=== PATIENT | female | born 1945 | race Caucasian/White ===

== ENCOUNTER → 2017-03-17 | Outpatient (CLI) | payer OTHER ==
[~2017-03-17] MED LIST: AZIT250T PO; CHOL100010 PO; CHOL1TAB76 PO; CHOL20009 PO; CLBPO15 TOP; CLIN300C10 PO; LEVO125T4 PO; LEVO125T7 PO; MULT1CAP53 PO; NUTR-218 PO; PRT/20 PO; TRIA0.5O TOP; [UNRECOGNIZED DRUG - CODE] PO
--- NOTE | 2017-03-17 13:58 | MAMMOGRAPHY REPORT ---
BILATERAL DIGITAL SCREENING MAMMOGRAM WITH CAD: 03/17/2017 CLINICAL HISTORY: Routine screening. Patient has no complaints. TECHNIQUE: Current study was also evaluated with a Computer Aided Detection (CAD) system. Bilateral CC and MLO views were obtained. COMPARISON: Comparison is made to exams dated: 03/16/2016 mammogram, 03/14/2015 mammogram, 03/13/2014 m ammogram, 03/12/2013 mammogram, 03/10/2012 mammogram, and 03/09/2011 mammogram - [facility] enter. BREAST COMPOSITION: The tissue of both breasts is almost entirely fatty. FINDINGS: No suspicious masses, calcifications, or areas of architectural distortion are noted in ei ther breast. There has been no significant interval change compared to prior exams. IMPRESSION: ACR BI-RADS CATEGORY 1: NEGATIVE There is no mammographic evidence of malignancy. A 1 year screening mammogram is recommended. The pa tient will receive written notification of the results. Approximately 10% of breast cancers are not detected with mammography. A negative mammographic report should not delay biopsy if a clinically suggestive mass is present. Rosalia Melgoza M.D. /:03/17/2017 12:28:38 Wrist Closer: Teressa Andrade RT(R)(M), [facility] letter sent: Normal 1/2 BI-RADS Code: ACR BI-RADS Category 1: Negative
== END | disposition home or self-care (01) ==
LOC: C.MAMM 08:15
PROVIDERS: ATTEND Family Medicine
DX: Z12.31 Encounter for screening mammogram for malignant neoplasm of breast (principal)

== ENCOUNTER → 2017-04-12 | Outpatient (CLI) | payer OTHER ==
--- NOTE | 2017-04-12 12:54 | DIAGNOSTIC IMAGING REPORT ---
CHEST 2 VIEWS ROUTINE CLINICAL HISTORY: Shortness of breath. COMPARISON STUDY: Chest radiograph October 06, 2012. FINDINGS: Lung volumes are normal. No pneumothorax or pleural effusion is present. Linear right midlung opacity suggests atelectasis. A lateral projection, there is increased opacity projecting over the lower thoracic spine. Cardiomediastinal silhouette is normal. Mild to moderate elevation of the right hemidiaphragm is unchanged. There are cholecystectomy clips. IMPRESSION: 1. Minimal opacity projecting over the lower thoracic spine on lateral projection. This is likely artifactual although a small area of pneumonia or a pleural effusion could appear similar. 2. Stable mild to moderate elevation of the right hemidiaphragm. Electronically signed by: Maximo Jeffrey M.D. 04/12/2017 12:53 PM Dictated Date/Time: 04/12/2017 12:49 PM
== END | disposition home or self-care (01) ==
LOC: C.RAD1850 11:00
PROVIDERS: ATTEND Physician Assistant
DX: R06.02 Shortness of breath (principal); R91.8 Other nonspecific abnormal finding of lung field

== ENCOUNTER 2017-04-21 12:36 | Emergency (ER) | payer OTHER ==
[~2017-04-21] VITALS: Ht 160 cm; Wt 92.0 kg
[~2017-04-21 12:36] MED LIST changes: -AZIT250T PO; -CHOL100010 PO; -CHOL20009 PO; -CLBPO15 TOP; -CLIN300C10 PO; -LEVO125T4 PO; -MULT1CAP53 PO; -NUTR-218 PO; -PRT/20 PO; -TRIA0.5O TOP; -[UNRECOGNIZED DRUG - CODE] PO
[2017-04-21 12:45] VITALS: TEMP 36.5; Ht 160 cm; Wt 92.0 kg
--- NOTE | 2017-04-21 13:11 | EMERGENCY ROOM VISIT NOTE ---
History Report prepared by Tucker: Alvarado Gao Under the Supervision of: Dr. Zoya Flood D.O. First contact with patient: 12:55 Chief Complaint: RESPIRATORY PROBLEMS Stated Complaint: BREATHING, NO PAIN History of Present Illness The patient is a 72 year old female who presents to the Emergency Room with complaints of persistent respiratory problems that started around 3 months ago. 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 The patient states that she has been having a hard time breathing and feels like she can't get a deep breath, and she has been having mouth burning as well. The patient notes that she has been seeing numerous doctors to try to figure out what is going on. She has been given Dexamethasone, which she says helped with her burning, but her breathing difficulties have persisted. The patient notes that she was given Azithromycin as well, and took her last dose of her 5-day course 5 days ago. She adds that she has been having an intermittent dry cough, but denies any fevers, runny nose , ear pain, chest pain, or leg swelling. The patient states that she called her pulmonology office and was told to come here. She notes no recent medication changes or sick contacts. She says that she did travel to [place] 4 months ago. The patient notes no history of lung problems or heart problems. She notes no family history of breathing issues, and she says that she has not had any major second-hand smoke exposure. She has never smoked, and she has no asthma history. The patient notes that she had a chest x-ray last week. Source of History: patient Onset: Around 3 months ago Position: other (global - respiratory problems) Quality: other (hard to get a deep breath) Timing: other (persistent) Associated Symptoms: + cough (dry), No fevers, No chest pain Note: Associated symptoms: Mouth burning which has resolved. Denies ear pain, runny nose, leg swelling. Review of Systems See HPI for pertinent positives & negatives. A total of 10 systems reviewed and were otherwise negative. Past Medical & Surgical Medical Problems: (1) Anxiety (2) Dyslipidemia (3) Gastroesophageal reflux disease (4) Hypothyroidism Family History Patient reports no known family medical history. Social History Smoking Status: Never Smoker Marital Status: Housing Status: lives with family Occupation Status: retired Current/Historical Medications Scheduled Azithromycin (Zithromax), 250 MG PO DAILY Cholecalciferol (Vitamin D), 1,000 UNITS PO DAILY Cholecalciferol (Vitamin D), 2,000 UNITS PO DAILY Clindamycin Hcl (Clindamycin Hcl), 600 MG PO UD Clobetasol Propionate (Clobetasol Propionate), 1 APPLN TOP BID Levothyroxine Sodium (Levothyroxine Sodium), 125 MCG PO DAILY Multiple Vitamins W/ Minerals (Macular Health Formula), 1 CAP PO DAILY Nutritional Supplements (Juice Plus Fibre), 1 DOSE PO DAILY Ackworth-3 Fatty Acids (Ackworth-3 Plus), 1 CAP PO DAILY Scheduled PRN Pantoprazole (Protonix), 20 MG PO DAILY PRN for GERD Triamcinolone Acetonide (Topic (Triamcinolone Acetonide), 1 APPLN TOP UD PRN for UNDECIDED Allergies Coded Allergies: Hydrocodone (Verified Allergy, Intermediate, HIVES, 04/21/17) Aspirin (Verified Allergy, Mild, HIVES, 04/21/17) Bupropion (Verified Allergy, Unknown, HIVES, 04/21/17) Codeine (Verified Allergy, Unknown, TYL #3, 07/09/16) Diphenhydramine (Verified Allergy, Unknown, 07/09/16) NSAIDs (Verified Allergy, Unknown, `, 04/21/17) Penicillins (Verified Allergy, Unknown, 07/09/16) Physical Exam Vital Signs Date Time Temp Pulse Resp B/P (MAP) Pulse Ox O2 Delivery O2 Flow Rate FiO2 04/21/17 18:22 73 20 167/90 92 Room Air 04/21/17 17:08 76 18 162/107 91 Room Air 04/21/17 16:24 71 04/21/17 14:37 91 Room Air 04/21/17 14:37 74 16 165/92 91 Room Air 04/21/17 13:02 94 Room Air 04/21/17 13:00 86 04/21/17 12:45 36.5 84 24 164/102 94 Room Air Physical Exam GENERAL: alert, well appearing, well nourished, no distress, non-toxic EYE EXAM: normal conjunctiva, PERRL and EOM's grossly intact OROPHARYNX: no exudate, no erythema, lips, buccal mucosa, and tongue normal and mucous membranes are dry NECK: supple, no nuchal rigidity, no adenopathy, non-tender LUNGS: Clear to auscultation. Normal chest wall mechanics HEART: no murmurs, S1 normal and S2 normal ABDOMEN: abdomen soft, non-tender, normo-active bowel sounds, no masses, no rebound or guarding. BACK: Back is symmetrical on inspection and there is no deformity, no midline tenderness, no CVA tenderness. SKIN: no rashes and no bruising UPPER EXTREMITIES: upper extremities are grossly normal. LOWER EXTREMITIES: No pitting edema. NEURO EXAM: Normal sensorium, cranial nerves II-XII grossly intact, normal speech, no gross weakness of arms, no gross weakness of legs. No drift. Finger to nose intact. Gross sensation intact. Medical Decision & Procedures ER Provider Diagnostic Interpretation: CT:Per my review, radiologist interpretation. (CHEST FOR PE) ANGIO WITH CT DOSE: 437.07 mGycm HISTORY: Chest pain dyspnea TECHNIQUE: Multiaxial CT images of the chest were performed following the intravenous administration of contrast to evaluate the pulmonary arteries. Maximal intensity projection images were also obtained. A dose lowering technique was utilized adhering to the principles of ALARA. COMPARISON STUDY: None. FINDINGS: There is a normal caliber thoracic aorta with no evidence for dissection. There is no evidence for pulmonary embolus. No pleural effusions. No pneumothorax. The liver and spleen are unremarkable. No mediastinal or hilar lymphadenopathy. The central airways are patent. The lungs demonstrate slight interstitial prominence in the mid to lower lung regions bilaterally. IMPRESSION: No evidence for pulmonary embolus. Mild interstitial change of the mid to lower lung regions The above report was generated using voice recognition software. It may contain grammatical, syntax or spelling errors. Electronically signed by: Obinna Arreola M.D. 04/21/2017 3:38 PM Dictated Date/Time: 04/21/2017 3:36 PM Laboratory Results 04/21/17 13:30 Red Blood Count 4.71, Mean Corpuscular Volume 89.6, Mean Corpuscular Hemoglobin 31.0, Mean Corpuscular Hemoglobin Concent 34.6, Mean Platelet Volume 8.9, Neutrophils (%) (Auto) 52.3, Lymphocytes (%) (Auto) 39.6, Monocytes (%) (Auto) 6.9, Eosinophils (%) (Auto) 0.7, Basophils (%) (Auto) 0.4, Neutrophils # (Auto) 3.76, Lymphocytes # (Auto) 2.85, Monocytes # (Auto) 0.50, Eosinophils # (Auto) 0.05, Basophils # (Auto) 0.03 04/21/17 13:30 Test 04/21/17 13:30 White Blood Count 7.20 K/uL (4.8-10.8) Red Blood Count 4.71 M/uL (4.2-5.4) Hemoglobin 14.6 g/dL (12.0-16.0) Hematocrit 42.2 % (37-47) Mean Corpuscular Volume 89.6 fL (80-100) Mean Corpuscular Hemoglobin 31.0 pg (25-34) Mean Corpuscular Hemoglobin Concent 34.6 g/dl (32-36) Platelet Count 312 K/uL (130-400) Mean Platelet Volume 8.9 fL (7.4-10.4) Neutrophils (%) (Auto) 52.3 % Lymphocytes (%) (Auto) 39.6 % Monocytes (%) (Auto) 6.9 % Eosinophils (%) (Auto) 0.7 % Basophils (%) (Auto) 0.4 % Neutrophils # (Auto) 3.76 K/uL (1.4-6.5) Lymphocytes # (Auto) 2.85 K/uL (1.2-3.4) Monocytes # (Auto) 0.50 K/uL (0.11-0.59) Eosinophils # (Auto) 0.05 K/uL (0-0.5) Basophils # (Auto) 0.03 K/uL (0-0.2) RDW Standard Deviation 46.5 fL (36.4-46.3) RDW Coefficient of Variation 14.0 % (11.5-14.5) Immature Granulocyte % (Auto) 0.1 % Immature Granulocyte # (Auto) 0.01 K/uL (0.00-0.02) Prothrombin Time 10.5 SECONDS (9.0-12.0) Prothromb Time International Ratio 1.0 (0.9-1.1) Anion Gap 9.0 mmol/L (3-11) Est Creatinine Clear Calc Drug Dose 69.0 ml/min Estimated GFR () 88.2 Estimated GFR (Non- 76.1 BUN/Creatinine Ratio 12.1 (10-20) Calcium Level 8.9 mg/dl (8.5-10.1) Magnesium Level 2.5 mg/dl (1.8-2.4) Total Bilirubin 0.4 mg/dl (0.2-1) Aspartate Amino Transf (AST/SGOT) 13 U/L (15-37) Alanine Aminotransferase (ALT/SGPT) 20 U/L (12-78) Alkaline Phosphatase 121 U/L (45-117) Troponin I < 0.015 ng/ml (0-0.045) Pro-B-Type Natriuretic Peptide 57 pg/ml (0-900) Total Protein 7.9 gm/dl (6.4-8.2) Albumin 3.7 gm/dl (3.4-5.0) Globulin 4.2 gm/dl (2.5-4.0) Albumin/Globulin Ratio 0.9 (0.9-2) Thyroid Stimulating Hormone (TSH) 4.620 uIu/ml (0.300-4.500) Laboratory results per my review. Medications Administered Medications (Trade) Dose Ordered Sig/Rex Route Start Time Stop Time Status Last Admin Dose Admin Albuterol (Ventolin Hfa Inhaler) 2 puffs NOW ONCE INH 04/21/17 18:00 04/21/17 18:01 DC 04/21/17 18:20 2 PUFFS ECG Indication: SOB/dyspnea Rate (beats per minute): 67 Rhythm: normal sinus Findings: T-wave inversion (in lead 3 and V3), other (normal axis, normal intervals, low voltage, no electrical alternans) ED Course ED COURSE: The patients medical record was reviewed The above diagnostic studies were performed and reviewed. ED treatments and interventions as stated above. 1300: The patient was evaluated in room B4B. A complete history and physical examination was performed. 1736: Upon reevaluation, the patient is resting comfortably.I discussed my findings with the patient and she understands and agrees with the treatment plan. Based on the patients age, coexisting illnesses, exam and lab findings the decision to treat as an outpatient was made. The patient remained stable while under my care. The patient appeared well at the time of discharge. 1800: Ordered Ventolin Hfa Inhaler 2 puffs INH. Medical Decision Differential diagnoses includes but is not limited to pneumonia, bronchitis, COPD/Asthma exacerbation, pneumothorax, pulmonary embolism, congestive heart failure, acute coronary syndrome Patient well-appearing here despite complaints. Complaints of trouble breathing and not always exertional, although patient states more noticeable with exertion. Symptoms have been going on for several months. Patient with negative CAT scan, reassuring labs, no hypoxia or increased work of breathing while ambulating here and patient states she did not feel out of breath with ambulatory trial. Discussed with patient close follow-up with family doctor. Patient states she did already have evaluation by cardiology felt that her symptoms are not related to her heart, she is scheduled for PFTs in 2 weeks by pulmonology. Discussed with patient symptoms to watch and return for, possible differential diagnosis, she was given an MDI and spacer which she felt was helpful, she verbalized understanding all this was agreeable with plan. Doubt ACS, dissection, PE, effusion, congestive heart failure, infiltrate. Patient with no history of asthma or COPD. Possible component of anxiety. Medication Reconcilliation Current Medication List: was personally reviewed by me Blood Pressure Screening Patient's blood pressure: Elevated blood pressure Blood pressure disposition: Elevated BP felt to be situational Impression Primary Impression: Dyspnea Scribe Attestation The scribe's documentation has been prepared under my direction and personally reviewed by me in its entirety. I confirm that the note above accurately reflects all work, treatment, procedures, and medical decision making performed by me. Departure Information Dispostion Home / Self-Care Referrals Rachele Vidal M.D. (PCP) Patient Instructions My [facility] Additional Instructions Please keep your appointment for the pulmonary function tests in 2 weeks as scheduled. Please follow up with your family doctor. You may use the inhaler and spacer as provided up to every 4 hours as needed. If you have any worsening trouble breathing, becomes more persistent, you develop chest pain, dizziness, feels though you're going to black out or pass out, develop a fever, or you have any other new concerns, please return the emergency room. Problem Qualifiers Primary Impression: Dyspnea Dyspnea type: dyspnea on exertion Qualified Codes: R06.09 - Other forms of dyspnea
[2017-04-21] MEDS ORDERED: [UNRECOGNIZED DRUG - CODE] PO (13:29)
[2017-04-21] MEDS ORDERED: TRIA0.5O TOP (13:29)
[2017-04-21] MEDS ORDERED: LEVO125T4 PO (13:29)
[2017-04-21] MEDS ORDERED: CLIN300C10 PO (13:29)
[2017-04-21] MEDS ORDERED: AZIT250T PO (13:29)
[2017-04-21] MEDS ORDERED: NUTR-218 PO (13:29)
[2017-04-21] MEDS ORDERED: PRT/20 PO (13:29)
[2017-04-21] MEDS ORDERED: MULT1CAP53 PO (13:29)
[2017-04-21] MEDS ORDERED: CHOL100010 PO (13:29)
[2017-04-21] MEDS ORDERED: CLBPO15 TOP (13:29)
[2017-04-21] MEDS ORDERED: CHOL20009 PO (13:29)
[2017-04-21 13:45] LABS: BASO % 0.4 %; BASO ABS # 0.03 K/uL (0-0.2); COMPLETE YES; EOS % 0.7 %; HEMATOCRIT 42.2 % (37-47); IG% 0.1 %; LYMPH % 39.6 %; LYMPH ABS # 2.85 K/uL (1.2-3.4); MEAN CELL VOLUME 89.6 fL (80-100); MEAN CORPUSCULAR HGB CONC 34.6 g/dl (32-36); MEAN PLATELET VOLUME 8.9 fL (7.4-10.4); MONO % 6.9 %; NEUT % 52.3 %; PLATELET COUNT 312 K/uL (130-400); RED BLOOD COUNT 4.71 M/uL (4.2-5.4)
[2017-04-21 13:55] LABS: PROTHROMBIN TIME (PATIENT) 10.5 SECONDS (9.0-12.0)
[2017-04-21 14:04] LABS: ALT/SGPT 20 U/L (12-78); AST/SGOT 13 U/L (15-37); BLOOD UREA NITROGEN 9 mg/dl (7-18); BUN/CREATININE RATIO 12.1 (10-20); CALCIUM 8.9 mg/dl (8.5-10.1); CARBON DIOXIDE 26 mmol/L (21-32); CHLORIDE 103 mmol/L (98-107); CREATININE 0.77 mg/dl (0.60-1.20); GLUCOSE 87 mg/dl (70-99); MAGNESIUM 2.5 mg/dl (1.8-2.4); POTASSIUM 3.9 mmol/L (3.5-5.1); SODIUM 138 mmol/L (136-145)
[2017-04-21 14:15] LABS: ALB/GLOB RATIO 0.9 (0.9-2); ALKALINE PHOSPHATASE 121 U/L (45-117)
[2017-04-21] MEDS ORDERED: OPTIRAY 320 IV PRN (14:30)
--- NOTE | 2017-04-21 15:40 | DIAGNOSTIC IMAGING REPORT ---
(CHEST FOR PE) ANGIO WITH CT DOSE: 437.07 mGycm HISTORY: Chest pain dyspnea TECHNIQUE: Multiaxial CT images of the chest were performed following the intravenous administration of contrast to evaluate the pulmonary arteries. Maximal intensity projection images were also obtained. A dose lowering technique was utilized adhering to the principles of ALARA. COMPARISON STUDY: None. FINDINGS: There is a normal caliber thoracic aorta with no evidence for dissection. There is no evidence for pulmonary embolus. No pleural effusions. No pneumothorax. The liver and spleen are unremarkable. No mediastinal or hilar lymphadenopathy. The central airways are patent. The lungs demonstrate slight interstitial prominence in the mid to lower lung regions bilaterally. IMPRESSION: No evidence for pulmonary embolus. Mild interstitial change of the mid to lower lung regions The above report was generated using voice recognition software. It may contain grammatical, syntax or spelling errors. Electronically signed by: Obinna Arreola M.D. 04/21/2017 3:38 PM Dictated Date/Time: 04/21/2017 3:36 PM
[2017-04-21] MEDS ORDERED: ALBUTEROL HFA 8 GM INHALER INH ONE (18:00)
[2017-04-21 18:22] VITALS: BP 167/90; PULSE 73; O2SAT 92
== END 2017-04-21 19:02 | disposition home or self-care (01) ==
LOC: C.EDB 12:39
DX: R06.09 Other forms of dyspnea (principal); R05 Cough; E03.9 Hypothyroidism, unspecified; E78.5 Hyperlipidemia, unspecified; F41.9 Anxiety disorder, unspecified; K21.9 Gastro-esophageal reflux disease without esophagitis; Z79.899 Other long term (current) drug therapy

== ENCOUNTER → 2018-03-20 | Outpatient (CLI) | payer OTHER ==
[~2018-03-20] MED LIST changes: +AZIT250T PO; +CHOL100010 PO; -CHOL1TAB76 PO; +CHOL20009 PO; +CLBPO15 TOP; +CLIN300C10 PO; +LEVO125T5 PO; -LEVO125T7 PO; +MULT1CAP53 PO; +NUTR-218 PO; +PRT/20 PO; +TRIA0.5O TOP; +[UNRECOGNIZED DRUG - CODE] PO
--- NOTE | 2018-03-20 13:56 | MAMMOGRAPHY REPORT ---
BILATERAL DIGITAL SCREENING MAMMOGRAM TOMOSYNTHESIS WITH CAD: 03/20/2018 CLINICAL HISTORY: Routine screening. Patient has no complaints. TECHNIQUE: Breast tomosynthesis in addition to standard 2D mammography was performed. Current study w as also evaluated with a Computer Aided Detection (CAD) system. COMPARISON: Comparison is made to exams dated: 03/17/2017 mammogram, 03/16/2016 mammogram, 03/14/2015 m ammogram, 03/13/2014 mammogram, 03/15/2012 ultrasound, and 03/10/2012 mammogram - [facility]. BREAST COMPOSITION: The tissue of both breasts is almost entirely fatty. FINDINGS: No suspicious masses, calcifications, or areas of architectural distortion are noted in either breast . There has been no significant interval change compared to prior exams. IMPRESSION: ACR BI-RADS CATEGORY 1: NEGATIVE There is no mammographic evidence of malignancy. A 1 year screening mammogram is recommended.( 019) The patient will receive written notification of the results. Some breast cancers are not detected with mammography. A negative mammographic report should not lety y biopsy if a clinically suggestive mass is present. oRsalia Melgoza M.D. /:03/20/2018 09:32:23 Turbo Generator Oiler: Edna Solis [facility] letter sent: Normal 1/2 BI-RADS Code: ACR BI-RADS Category 1: Negative
== END | disposition home or self-care (01) ==
LOC: C.MAMM 08:33
PROVIDERS: ATTEND Family Medicine
DX: Z12.31 Encounter for screening mammogram for malignant neoplasm of breast (principal); M85.851 Other specified disorders of bone density and structure, right thigh

== ENCOUNTER 2023-10-22 08:19 | Observation (INO) ==
--- NOTE | 2023-10-22 08:55 | Emergency Department Note ---
Impression & Plan Right arm weakness, Stroke-like symptoms, History of CVA (cerebrovascular accident), Hypertension ED Provider Note NAME: LAKEISHA MEDEROS AGE: 78 SEX: F : 1945 ARRIVES VIA: Walk-In INFORMANT: [Patient][family] ED PROVIDER(S): [Dominick Uribe MD] CHIEF COMPLAINT: TIA symptoms HISTORY OF PRESENT ILLNESS: The patient is an 78-year-old female who states that yesterday, around 3:30 in the PM, she had the sudden sensation of difficulty with movement of her right arm, her right face was droopy and somewhat numb and her speech was slurred. Her symptoms lasted 30 seconds. Patient was fine the rest of the day. This morning, at around 6:30 AM, 2 hours and 15 minutes ago, she noticed difficulty with movement of her right arm. There was no face or speech issue this time around. Her symptoms did last for an hour and a half before resolving. She feels back to baseline now. The patient states that a month ago, she had her cholesterol medications increased. 3 days ago, she had a blood pressure medication change because she was coughing too much with the original medication. There is no headache, she has not had chest pain or shortness of breath. No cough or cold or congestion. No urinary complaints. She states that despite everything over the last few days, she never noticed issues with her legs. Of note, the patient is allergic to aspirin. She has had a stroke previously, she is on Plavix daily. PMHx/PSHx/Social Hx: See Below PHYSICAL EXAM: GENERAL: Patient is in no acute distress. HEENT: No acute trauma, normocephalic atraumatic, mucous membranes moist, no nasal congestion. NECK: No stridor, no adenopathy, no meningismus, trachea is midline. LUNGS: Clear to auscultation bilaterally, no wheeze, no rhonchi, breath sounds equal. HEART: Without murmurs gallops or rubs, regular rate and rhythm. ABDOMEN: Soft, nontender, no peritonitis. EXTREMITIES: No cyanosis, full range of motion of all the joints without pain or difficulty. NEUROLOGIC: Oriented x 3, no acute motor or sensory deficits, no focal weakness. No speech slur or facial droop, no extremity drift, no issues with cerebellar function, excellent historian. SKIN: No jaundice, no diaphoresis. DIFFERENTIAL DIAGNOSIS: TIA, stroke, UTI, electrolyte imbalance, dysrhythmia, intracranial bleeding, among others. EMERGENCY DEPARTMENT PROCEDURES: MEDICAL DECISION MAKING: There is no leukocytosis or concerning anemia. There is a normal platelet count. No coagulopathy. Sodium slightly low but not in need of emergent correction. No renal failure. Alk phos slightly elevated, the remaining liver enzymes were unremarkable. ECG shows a normal sinus rhythm, no ischemia or dysrhythmia. Cardiac enzymes x 1 is not consistent with acute cardiac injury. Urinalysis does not show infection. Brain CT shows no acute bleed or mass effect. CT angio of the head and neck were performed. There was no clot or severe stenosis. On my exam, there were no focal neurologic findings. The patient's symptoms had resolved. She was noted to be somewhat hypertensive. Patient was given oral Plavix, 75 mg. She received a 500 cc saline bolus. Patient presents with stroke symptoms. She very likely suffered a TIA yesterday and then again today. She has a history of CVA and is on Plavix. She did have her blood pressure medications recently switched. Her pressure is slightly high and at this point just needs to be followed. Patient requires a hospital stay for further stroke workup. I did speak with the patient and case management, the on-call hospitalist was consulted. Prior/Outside records/notes reviewed: Discharge summary note from 10/01/2020 discussing her presentation and the diagnosis of stroke. ECG per my interpretation: Indication was a possible stroke. The ECG shows a normal sinus rhythm with a rate of 83. There is no acute ST elevation. There are no PVCs. There is some nonspecific ST change. The QTc is 460. Continuous Cardiac Monitoring per my interpretation: An order was placed for continuous cardiac monitoring. The monitor shows a rate of 86 with normal sinus rhythm. Imaging/x-ray results per my interpretation: Chronic Medical/Social conditions affecting care: Advanced age. Care/Management discussed with: Case management, the on-call hospitalist. 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 History of sleep apnea O2 SAT CHRONICALLY RUNS AT 92% PER PT Surgical History History of cataract surgery History of cholecystectomy History of colonoscopy History of hysterectomy History of open reduction and internal fixation (ORIF) procedure History of oral surgery History of total left knee replacement Family History Other Asthma Hearing loss Heart disease Hypertension No family history of bleeding disorder Stroke Denies family history of Cancer Social History Smoking Status: Never smoker Do You Dip or Chew Tobacco: No; Hx Alcohol Use: No Hx Substance Use: No Preferred Language: Bengali Communication Ability: Effective Art Class Model Required: No Beliefs That Will Affect Care: None marital status: / Current Living Situation: Alone current occupational status: retired How many Children do You have: 4 Other Information That Helps Us Care for You: No Feels Safe at Home: Yes Safety Concerns: Feels Safe At This Time Assistive Devices: Denture - Upper, Denture - Lower, Glasses and Hearing Aid - Bilateral Allergies Allergies Allergy/AdvReac Type Severity Reaction Status Date / Time aspirin Allergy Intermediate HIVES Verified 07/30/21 08:58 bupropion Allergy Intermediate HIVES Verified 07/30/21 08:58 codeine Allergy Intermediate TYL Verified 07/30/21 08:58 #3/HIVES hydrocodone Allergy Intermediate HIVES Verified 07/30/21 08:58 NSAIDS (Non-Steroidal Allergy Intermediate Hives Verified 07/30/21 08:58 Anti-Inflamma Penicillins Allergy Intermediate Hives Verified 07/30/21 08:58 Home Meds Home Medications Medication Instructions Recorded Confirmed ascorbic acid (vitamin C) 1,000 mg 1 g PO QAM 02/12/20 10/22/23 tablet (Vitamin C) cholecalciferol (vitamin D3) 50 50 mcg PO QAM 02/12/20 10/22/23 mcg (2,000 unit) capsule (Vitamin D3) coenzyme Q10 100 mg capsule 200 mg PO DAILY 10/17/20 10/22/23 (CoQ-10) pantoprazole 20 mg tablet,delayed 20 mg PO QPM 10/17/20 10/22/23 release levothyroxine 137 mcg tablet 137 mcg PO DAILY 07/30/21 10/22/23 nutritional supplement-fiber oral 2 ea PO DAILY 07/30/21 10/22/23 liquid nutritional supplement-fiber oral 2 ea PO DAILY 07/30/21 10/22/23 liquid omega-3 fatty acids [[place] 3] 4 cap PO DAILY 07/30/21 10/22/23 zinc gluconate-vitamin C [zinc] 50 mg PO DAILY 07/30/21 10/22/23 hydrochlorothiazide 12.5 mg capsule 12.5 mg PO DAILY 10/22/23 10/22/23 pravastatin 40 mg tablet 40 mg PO DAILY 10/22/23 10/22/23 Previous Rx's Medication Instructions Recorded clopidogrel 75 mg tablet 75 mg PO QAM #30 tabs 10/01/20 Results & Data (ED) Vital Signs Vital Signs - 24 hr 10/22/23 08:28 10/22/23 08:51 10/22/23 09:04 Temperature 36.3 C L Temperature Source Temporal Artery Scan Pulse Rate 93 H 84 Pulse Rate [Apical] 86 Respiratory Rate 18 18 Respiratory Effort / Characteristics Non-Labored Non-Labored Respiratory Depth Normal Normal Respiratory Pattern Regular Regular Blood Pressure 163/76 H Blood Pressure [Left Arm] 161/94 H Blood Pressure Mean 105 Blood Pressure Mean [Left Arm] 116 Pulse Oximetry 95 94 Oxygen Delivery Method Room Air Room Air Sepsis Recent Fever Within 48 Hours No Sepsis New/Unexplained Change in Mental Status N/A Sepsis Action Taken by Nursing No Action Required 10/22/23 09:50 Temperature Temperature Source Pulse Rate Pulse Rate [Apical] 76 Respiratory Rate 18 Respiratory Effort / Characteristics Non-Labored Respiratory Depth Normal Respiratory Pattern Regular Blood Pressure Blood Pressure [Left Arm] 184/98 H Blood Pressure Mean Blood Pressure Mean [Left Arm] 126 Pulse Oximetry 98 Oxygen Delivery Method Room Air Sepsis Recent Fever Within 48 Hours Sepsis New/Unexplained Change in Mental Status Sepsis Action Taken by Prison Medications Current Medication List: was personally reviewed by me Laboratory Data Attestation: I reviewed the patient's lab results. 10/22/23 08:42 10/22/23 08:42 Lab Results 10/22/23 10/22/23 10/22/23 Range/Units 08:42 08:44 09:44 WBC 7.09 (4.8-10.8) K/ul RBC 4.92 (4.20-5.40) M/uL Hgb 14.6 (12.0-16.0) g/dl Hct 44.0 (37.0-47.0) % MCV 89.4 (80.0-100.0) fL MCH 29.7 (25.0-34.0) pg MCHC 33.2 (32.0-36.0) g/dL RDW Std Deviation 42.5 (36.4-46.3) fL RDW Coeff of [place] 12.9 (11.5-14.5) % Plt Count 344 (130-400) K/uL MPV 8.9 L (9.4-12.4) fL Immature Gran % (Auto) 0.3 % Neut % (Auto) 57.0 % Lymph % (Auto) 34.7 % [place] % (Auto) 7.2 % Eos % (Auto) 0.4 % Baso % (Auto) 0.4 % Neut # (Auto) 4.04 (1.40-6.50) K/uL Lymph # (Auto) 2.46 (1.20-3.40) K/uL [place] # (Auto) 0.51 (0.11-0.59) K/uL Eos # (Auto) 0.03 (0.00-0.50) K/uL Baso # (Auto) 0.03 (0.00-0.20) K/uL Immature Gran # (Auto) 0.02 (0.01-0.20) K/uL PT 10.6 (9.0-12.0) Seconds INR 1.0 (0.9-1.1) APTT 29 (21-31) Seconds PTT Ratio 1.0 Sodium 131 L (136-145) mmol/L Potassium 3.7 (3.5-5.1) mmol/L Chloride 95 L (98-107) mmol/L Carbon Dioxide 28 (21-32) mmol/L Anion Gap 8 (3-11) BUN 10 (6-23) mg/dl Creatinine 0.80 (0.6-1.2) mg/dl Est Cr Clr Drug Dosing 59.5 ml/min Est GFR ( Amer) 80.7 ml/min Est GFR (Non-Af Amer) 69.6 ml/min BUN/Creatinine Ratio 12.5 (10-20) Glucose 117 H (70-99(Fasting)) mg/dl POC Glucose 118 H (70-99) mg/dl Calcium 9.5 (8.6-10.3) mg/dl Magnesium 2.2 (1.7-2.4) mg/dl Total Bilirubin 0.5 (0.2-1.0) mg/dl AST 17 (13-39) U/L ALT 14 (7-52) U/L Alkaline Phosphatase 106 H (34-104) U/L Troponin I High Sens 2.5 (0-14) pg/ml Total Protein 7.7 (6.0-8.3) gm/dl Albumin 4.2 (3.4-5.0) gm/dl Globulin 3.5 (2.5-4.0) gm/dl Albumin/Globulin Ratio 1.2 (0.9-2) Urine Color Yellow Urine Appearance Clear (Clear) Urine pH 7.5 (4.5-7.5) Ur Specific [place] 1.013 (1.000-1.030) Urine Protein Negative (Negative) Urine Glucose (UA) Negative (Negative) Urine Ketones Negative (Negative) Urine Blood Negative (Negative) Urine Nitrite Negative (Negative) Urine Bilirubin Negative (Negative) Urine Urobilinogen Negative (Negative) Ur Leukocyte Esterase Trace H (Negative) Urine WBC (Auto) 1-5 (0-5) /hpf Urine RBC (Auto) 0-4 (0-4) /hpf U Hyaline Cast (Auto) 0 (0-5) /lpf U Epithel Cells (Auto) 10-20 H (0-5) /lpf Urine Bacteria (Auto) Negative (Negative) Administered Medications Discontinued Medications Clopidogrel Bisulfate (Clopidogrel Bisulfate 75 Mg Tab) 75 mg PO NOW ONE Stop: 10/22/23 08:50 Last Admin: 10/22/23 09:00 Dose: 75 mg Documented By: DAREN Sodium Chloride (Nss) 500 mls @ 999 mls/hr IV .Q31M ONE Stop: 10/22/23 09:19 Last Infusion: 10/22/23 09:40 Dose: Infused Documented By: Admin: 10/22/23 09:00 Dose: 999 mls/hr Documented By: DAREN Ioversol (Optiray 320 125ml) 112 ml IV ONCE ONE Stop: 03/30/24 09:27 Last Admin: 10/22/23 09:27 Dose: 112 ml Documented By: AMARILYS Lorazepam (Lorazepam 1 Mg/1 Ml Syr Ed Inj Use) 0.5 mg IV ONE ONE Stop: 10/22/23 12:16 Last Admin: 10/22/23 12:55 Dose: 0.5 mg Documented By: DAREN Imaging Data Radiologist's Impression: Head CT 10/22/23 08:[address] DOSE: HISTORY: neuro deficit, acute stroke suspected TECHNIQUE: Multiaxial CT images of the head were performed without the use of intravenous contrast. Automated exposure control was utilized for this study. A dose lowering technique was utilized adhering to the principles of ALARA. Comparison: Head CT 10/17/2020. Findings: The paranasal sinuses and mastoid air cells are clear. The calvarium and skull base are intact. There is no mass, hematoma, midline shift, acute infarct. White matter hypodensity is nonspecific but suggestive of microvascular ischemic change. The ventricles and sulci demonstrate mild age-related involutional changes. Impression: No significant change compared to the prior study. No acute intracranial abnormality. ACT 112: Negative or not required by law. Electronically signed by: Jamaal Marcano M.D. 10/22/2023 9:54 AM Head CTA 10/22/23 08:50 HEAD & NECK CTA HISTORY: neuro deficit, acute stroke suspected TECHNIQUE: Multiaxial CT images of the head were performed following the intravenous administration of contrast to evaluate the major cerebral vessels. Multiaxial CT images of the neck were also performed following the intravenous administration of contrast to evaluate the major cervical vessels. 3D/MIP images were also obtained. Sagittal and coronal reformats were reviewed. A dose lowering technique was utilized adhering to the principles of ALARA. COMPARISON: Head and neck CTA 09/28/2020. FINDINGS: There is no mass, hematoma, midline shift, or acute infarct. Visualized intracranial internal carotid arteries, distal vertebral arteries, and basilar artery are widely patent. 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 Mild focal narrowing within the right P1 segment of less than 50% has slightly improved. The major dural venous sinuses are patent. The aortic arch and proximal great vessels are widely patent. There is no significant stenosis, occlusion, or dissection identified within the bilateral common carotid, internal carotid, or vertebral arteries. Mild calcified plaque within the bilateral carotid bifurcations. IMPRESSION: 1. No significant stenosis, occlusion, or aneurysm within the [place]. 2. No significant stenosis, occlusion, or dissection identified within the carotid or vertebral arteries. 3. Mild focal narrowing within the right P1 segment of less than 50% has slightly improved. ACT 112: Negative or not required by law. Electronically signed by: Jamaal Marcano M.D. 10/22/2023 9:59 AM Neck CTA 10/22/23 08:50 HEAD & NECK CTA HISTORY: neuro deficit, acute stroke suspected TECHNIQUE: Multiaxial CT images of the head were performed following the intravenous administration of contrast to evaluate the major cerebral vessels. Multiaxial CT images of the neck were also performed following the intravenous administration of contrast to evaluate the major cervical vessels. 3D/MIP images were also obtained. Sagittal and coronal reformats were reviewed. A dose lowering technique was utilized adhering to the principles of ALARA. COMPARISON: Head and neck CTA 09/28/2020. FINDINGS: There is no mass, hematoma, midline shift, or acute infarct. Visualized intracranial internal carotid arteries, distal vertebral arteries, and basilar artery are widely patent. 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 Mild focal narrowing within the right P1 segment of less than 50% has slightly improved. The major dural venous sinuses are patent. The aortic arch and proximal great vessels are widely patent. There is no significant stenosis, occlusion, or dissection identified within the bilateral common carotid, internal carotid, or vertebral arteries. Mild calcified plaque within the bilateral carotid bifurcations. IMPRESSION: 1. No significant stenosis, occlusion, or aneurysm within the [place]. 2. No significant stenosis, occlusion, or dissection identified within the carotid or vertebral arteries. 3. Mild focal narrowing within the right P1 segment of less than 50% has slightly improved. ACT 112: Negative or not required by law. Electronically signed by: Jamaal Marcano M.D. 10/22/2023 9:59 AM Discharge Plan Visit Data Chief Complaint: TIA Symptoms Stated Complaint: RIGHT ARM PAIN/NUMBNESS, FACIAL DROOP YESTERDAY ED Provider: Dominick Uribe Discharge Problem: Right arm weakness, Stroke-like symptoms, History of CVA (cerebrovascular accident), Hypertension Patient Disposition: Admitted As Inpatient Condition: Good Discharge Instructions Interventions: ED Discharge Assessment Last Done: 10/22/23 13:00 Discharge Problem: Hypertension Qualifiers: Hypertension type: unspecified Qualified Code(s): I10 - Essential (primary) hypertension
[2023-10-22] MEDS: SODIUM CHLORIDE 0.9% 500 ML IV ONE (09:00)
[2023-10-22] MEDS: CLOPIDOGREL BISULFATE 75 MG TAB PO ONE (09:00)
[2023-10-22 09:07] LABS: Basophils # (auto) 0.03 K/uL (0.00-0.20); Basophils % (auto) 0.4 %; Eosinophils # (auto) 0.03 K/uL (0.00-0.50); Eosinophils % (auto) 0.4 %; Hemoglobin 14.6 g/dl (12.0-16.0); Immature Granulocytes # (auto) 0.02 K/uL (0.01-0.20); Immature Granulocytes % (auto) 0.3 %; Lymphocytes # (auto) 2.46 K/uL (1.20-3.40); Lymphocytes % (auto) 34.7 %; Mean Corpuscular Hemoglobin 29.7 pg (25.0-34.0); Mean Corpuscular Hgb Conc 33.2 g/dL (32.0-36.0); Mean Corpuscular Volume 89.4 fL (80.0-100.0); Mean Platelet Volume 8.9 fL (9.4-12.4); Monocytes # (auto) 0.51 K/uL (0.11-0.59); Monocytes % (auto) 7.2 %; Neutrophils # (auto) 4.04 K/uL (1.40-6.50); Platelet Count 344 K/uL (130-400); RDW Coefficient of Variation 12.9 % (11.5-14.5); RDW Standard Deviation 42.5 fL (36.4-46.3); Red Blood Count 4.92 M/uL (4.20-5.40); White Blood Count 7.09 K/ul (4.8-10.8)
[2023-10-22 09:11] LABS: Albumin Globulin Ratio 1.2 (0.9-2); Albumin Level 4.2 gm/dl (3.4-5.0); BUN Creatinine Ratio 12.5 (10-20); Bilirubin,Total 0.5 mg/dl (0.2-1.0); Calcium 9.5 mg/dl (8.6-10.3); Creatinine Clr Calc Pharmacy 59.5 ml/min; Est GFR (African American) 80.7 ml/min; Est GFR (Non-African American) 69.6 ml/min; Globulin 3.5 gm/dl (2.5-4.0); Magnesium 2.2 mg/dl (1.7-2.4); Potassium 3.7 mmol/L (3.5-5.1); Total Protein 7.7 gm/dl (6.0-8.3)
[2023-10-22 09:14] LABS: Partial Thromboplastin Time 29 Seconds (21-31); Prothrombin Time 10.6 Seconds (9.0-12.0)
[2023-10-22 09:17] LABS: Troponin I High Sensitivity 2.5 pg/ml (0-14)
[2023-10-22] MEDS: OPTIRAY 320 125ml IV ONE (09:27)
--- NOTE | 2023-10-22 09:56 | CT Scan Report ---
HEAD CT NONCONTRAST CT DOSE: HISTORY: neuro deficit, acute stroke suspected TECHNIQUE: Multiaxial CT images of the head were performed without the use of intravenous contrast. A utomated exposure control was utilized for this study. A dose lowering technique was utilized adheri ng to the principles of ALARA. Comparison: Head CT 10/17/2020. Findings: The paranasal sinuses and mastoid air cells are clear. The calvarium and skull base are int act. There is no mass, hematoma, midline shift, acute infarct. White matter hypodensity is nonspecifi c but suggestive of microvascular ischemic change. The ventricles and sulci demonstrate mild age-rela angel involutional changes. Impression: No significant change compared to the prior study. No acute intracranial abnormality. ACT 112: Negative or not required by law. Electronically signed by: Jamaal Marcano M.D. 10/22/2023 9:54 AM
--- NOTE | 2023-10-22 10:01 | CT Scan Report ---
HEAD & NECK CTA HISTORY: neuro deficit, acute stroke suspected TECHNIQUE: Multiaxial CT images of the head were performed following the intravenous administration o f contrast to evaluate the major cerebral vessels. Multiaxial CT images of the neck were also perform ed following the intravenous administration of contrast to evaluate the major cervical vessels. 3D/ME P images were also obtained. Sagittal and coronal reformats were reviewed. A dose lowering technique was utilized adhering to the principles of ALARA. COMPARISON: Head and neck CTA 09/28/2020. FINDINGS: There is no mass, hematoma, midline shift, or acute infarct. Visualized intracranial internal carotid arteries, distal vertebral arteries, and basilar artery are widely patent. 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 Mild focal narrowi ng within the right P1 segment of less than 50% has slightly improved. The major dural venous sinuses are patent. The aortic arch and proximal great vessels are widely patent. There is no significant stenosis, occ lusion, or dissection identified within the bilateral common carotid, internal carotid, or vertebral arteries. Mild calcified plaque within the bilateral carotid bifurcations. IMPRESSION: 1. No significant stenosis, occlusion, or aneurysm within the [place]. 2. No significant stenosis, occlusion, or dissection identified within the carotid or vertebral arter ies. 3. Mild focal narrowing within the right P1 segment of less than 50% has slightly improved. ACT 112: Negative or not required by law. Electronically signed by: Jamaal Marcano M.D. 10/22/2023 9:59 AM
--- NOTE | 2023-10-22 10:01 | CT Scan Report ---
HEAD & NECK CTA HISTORY: neuro deficit, acute stroke suspected TECHNIQUE: Multiaxial CT images of the head were performed following the intravenous administration o f contrast to evaluate the major cerebral vessels. Multiaxial CT images of the neck were also perform ed following the intravenous administration of contrast to evaluate the major cervical vessels. 3D/ND P images were also obtained. Sagittal and coronal reformats were reviewed. A dose lowering technique was utilized adhering to the principles of ALARA. COMPARISON: Head and neck CTA 09/28/2020. FINDINGS: There is no mass, hematoma, midline shift, or acute infarct. Visualized intracranial internal carotid arteries, distal vertebral arteries, and basilar artery are widely patent. 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 Mild focal narrowi ng within the right P1 segment of less than 50% has slightly improved. The major dural venous sinuses are patent. The aortic arch and proximal great vessels are widely patent. There is no significant stenosis, occ lusion, or dissection identified within the bilateral common carotid, internal carotid, or vertebral arteries. Mild calcified plaque within the bilateral carotid bifurcations. IMPRESSION: 1. No significant stenosis, occlusion, or aneurysm within the [place]. 2. No significant stenosis, occlusion, or dissection identified within the carotid or vertebral arter ies. 3. Mild focal narrowing within the right P1 segment of less than 50% has slightly improved. ACT 112: Negative or not required by law. Electronically signed by: Jamaal Marcano M.D. 10/22/2023 9:59 AM
--- OUTSIDE RECORDS SUMMARY | 2023-10-22 10:18 | External Medical Summary | Continuity of Care Document ---
Author Name Unknown Organization [facility] [facility] [id number] [place] [id number] Care Team Providers Care Site Interpreter Name Role Phone China Mera Primary Care Physician [phone] [id number] Date(s): 09/28/23 - 09/28/23 [facility] 0 [facility] 207 [facility] [address] [phone] Encounter Diagnosis Hypothyroidism(Discharge Diagnosis) - 09/28/23 Hyperlipidemia(Discharge Diagnosis) - 09/28/23 Discharge Disposition: Home or Self Care Attending Physician: BAM Mera Shari A Referring Physician: BAM Mera Shari A Allergies, Adverse Reactions, Alerts Substance Reaction Severity Status codeine chest pain Active naproxen hives Active aspirin hives Active penicillins hives Active HMG-CoA reductase inhibitors leg pain Active Wellbutrin pain in legs Active Vicodin chest pain Active Immunizations Given and Recorded Vaccine Date Status Refusal Reason tetanus toxoids-diphtheria, Td (Adult) 07/24/18 Gi paula tetanus toxoids-diphtheria, Td (Adult) 1 12/08/98 Recorded tetanus toxoids-diphtheria, Td (Adult) 2 03/25/96 Recorded pneumococcal 13-valent vaccine 3 12/08/15 Given tetanus/diphtheria/pertuss, acel (Tdap) 03/18/08 R ecorded pneumococcal 23-valent vaccine 03/18/08 Recorded influenza virus vaccine, inactivated 07/25/06 Mauricio rded 1Result Comment: 2021-05-06: Historical information-source unspecified 2Result Comment: 2021-05-06: Historical information-source unspecified 3Result Comment: witnessed by Judy R. STERILIZATION TECH Medications clobetasol 0.05% topical lotion Start: 08/19/22 12:11:00 EST, See Instructions, Disp# 30 mL, Refills: 1, for vaginal itching apply a thin film up to twice daily prn 14 days at time, Pharmacy: [facility]/pharmacy #[id number] Start Date: 08/19/22 Status: Ordered clopidogrel 75 mg oral tablet Start: 09/22/23 8:45:00 EST, See Instructions, Disp# 90 tab, Refills: 3, TAKE 1 TABLET BY MOUTH EVERY DAY, Pharmacy: [facility]/pharmacy #[id number] Start Date: 09/22/23 Status: Ordered dexamethasone 0.5 mg/5 mL oral liquid Start: 03/29/22 16:01:00 EDT, See Instructions, Disp# 240 mL, Refills: 1, SWISH AND SPIT 5 MLS BY MOUTH 2 TIMES A DAY, Pharmacy: [facility] [id number] Start Date: 03/29/22 Status: Ordered elppa CoQ10 50 mg oral capsule Start: 10/27/20 12:48:00 EDT, 200 mg =, PO, Daily Start Date: 10/27/20 Status: Ordered famotidine 20 mg oral tablet Start: 03/17/23 8:49:00 EDT, 1 tab, PO, Daily, Disp# 30 tab, Refills: 11, Pharmacy: [facility]/pharmacy #[id number] Start Date: 03/17/23 Stop Date: 03/11/24 Status: Ordered juice plus Start: 06/03/16 13:40:00, juice plus, 1 cap, PO, Daily Start Date: 06/03/16 Status: Ordered levothyroxine 137 mcg (0.137 mg) oral tablet Start: 05/04/23 14:46:00 EDT, See Instructions, Disp# 90 tab, Refills: 3, TAKE 1 TABLET BY MOUTH EVERY DAY, Pharmacy: [facility]/pharmacy #[id number] Start Date: 05/04/23 Status: Ordered lisinopril 5 mg oral tablet Start: 09/22/23 8:59:00 EST, 1 tab, PO, Daily, Disp# 30 tab, Refills: 3, Pharmacy: [facility]/pharmacy #[id number] Start Date: 09/22/23 Stop Date: 01/20/24 Status: Ordered pantoprazole 20 mg oral delayed release tablet Start: 04/13/23 15:40:00 EDT, See Instructions, Disp# 90 tab, Refills: 3, TAKE 1 TABLET BY MOUTH EVERY DAY, Pharmacy: [facility]/pharmacy #[id number] Start Date: 04/13/23 Status: Ordered pravastatin 40 mg oral tablet Start: 09/22/23 8:46:00 EST, 1 tab, PO, Daily, Disp# 90 tab, Refills: 3, Pharmacy: [facility]/pharmacy #[id number] Start Date: 09/22/23 Stop Date: 09/16/24 Status: Ordered triamcinolone 0.1% topical cream Start: 03/04/21 11:42:00 EDT, 1 appl, topical, bid, Disp# 15 g, Refills: 1, apply to dermatitis on the ankle until clear, [facility]acy: [id number] Start Date: 03/04/21 Status: Ordered unknown medication Start: 10/08/21 13:41:00 EDT, bergarot extract 1000 mg daily Start Date: 10/08/21 Status: Ordered Vitamin C 500 mg oral tablet Start: 01/15/14 14:26:00 EDT, 2 tab, PO, Daily Start Date: 01/15/14 Status: Ordered Vitamin D3 2000 intl units oral tablet Start: 03/15/13 11:19:00, 1 tab, PO, Daily Start Date: 03/15/13 Status: Ordered Zinc Start: 08/31/21 10:05:00 EST Start Date: 08/31/21 Status: Ordered Problem List Condition Confirmation Course Effective Dates Status H ealth Status Informant Right pontine stroke 1 Confirmed Active DDD (degenerative disc disease), lumbar Confirmed Active Macular degeneration Confirmed Active GERD Confirmed Active 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 Confirmed Active Hyperlipidemia Confirmed Active Hypothyroid Confirmed Active Osteoarthritis Confirmed Active Durable power of attorney at law for healthcare exists but copy not available Confirmed Active Sleep apnea 2 Confirmed Active COVID-19 vaccination declined Confirmed Active Weight disorder Confirmed Active 02032, Tee, follow up prn 2Has CPAP but doesn't uses it Diagnosis Diagnosis Type Effective Dates Health Status Cl inical Service Informant Hypothyroidism Discharge Diagnosis 09/28/23 Non-Specified Hyperlipidemia Discharge Diagnosis 09/28/23 Non-Specified Procedures Procedure Date Related Diagnosis Body Site Status Bone density scan 1 04/01/23 Compl eted Mammogram 2 04/01/23 Completed Mammogram 3 03/26/21 Completed Eye examination 4 10/03/[address] angiography of head and neck 5 10/01/20 Completed Chest x-ray 6 09/28/[address] of head without contrast 7 09/28/20 Completed MRI of brain without contrast 8 09/28/20 Completed Cataracts 02/26/20 Completed Surgery 9 09/07/19 Completed Mammogram - screening 10 03/22/19 Completed Mammogram 11 03/22/18 Completed DEXA - Dual energy X-ray fiona ton absorptiometry 12 03/20/[address] 13 04/21/17 Completed Chest x-ray 14 04/12/17 Completed Mammogram 15 03/18/17 Completed Examination of eye 16 07/13/[address] head w/o contrast 17 07/09/16 C ompleted Emergency department patient visit 18 07/09/16 Completed Mammogram 19 03/16/16 Completed Mammogram 20 03/14/15 Completed Epidural steroid injection 21 02/26/15 Completed Ultrasound scan of thyroid 22 12/10/14 Completed Mammogram 23 03/13/14 Completed Shave biopsy 01/15/14 Completed mammo 24 03/12/13 Completed epidural steroid shots 25 10/12/12 Completed XR Left Shoulder 26 10/06/12 Compl eted Colonoscopy 27 08/06/11 Completed DEXA - Dual energy X-ray fiona ton absorptiometry 28 07/30/10 Completed CTR - Carpal tunnel release 2010 Completed Fracture of hand 2006 Compl eted Arthroscopy of knee 2005 Co mpleted Fracture of hand 32 2005 Compl eted left knee replacement 01/24/03 Com pleted Total prosthetic arthroplast y of left knee 2002 Completed Cholecystectomy Completed hysterectomy Completed knee arthroscopy Complete d right ankle fracture repair Completed Tonsillectomy Completed 1AP Spine T-score: 0.6 DualFemur T-score: -0.8 2Impression: There is no mammographic evidence of malignancy. A 1 year screening mammogram is recommended 3Impression: There is no mammographic evidence of malignancy. 4[facility] "On her exam, there was a comitant nonaccommodative esotropia. The remainder of the examination wasunremarkable. Ms. Kidd has an esotropia which is responsible for her double vision. This is not an unusual finding given the location of her stroke." See note- to be scanned in 5moderate focal narrowing within the p1 segment. Otherwise, no significant stenosis, occlusion, or aneurysm within the [place]. 2. No signficant stenosis, occlusion, or dissection identified within the carotid or vertebral arteries. 6No significant change compared to the prior study. No acute process. 7No acute intracranial abnormality. 8No acute intracranial abnormality. Scattered foci of T2 hyperintensity seen within the periventricular and subcortical white matter are nonspecific but favor mild microvascular ischemic change. 99 teeth extracteded 10IMPRESSION: ACR BI-RADS CATEGORY 1: NEGATIVE There is no mammographic evidence of malignancy. A 1 year screening mammogram is recommended. 11IMPRESSION: ACR BI-RADS CATEGORY 1: NEGATIVE There is no mammographic evidence of malignancy. A 1 year screening mammogram is recommended.(03/21/2019) The patient will receive written notification of the results. 12Spine T score 0.5 Femur T score -0.4 13Impression: No evidence for pulmonary embolus. Mild interstitial change of the mid to lower lung. 141. Minimal opacity projecting over the lower thoracic spine on lateral projection. This is likely artifactual although a small area of pneumonia or a pleural effusion could appear similar. 2. Stable mild to moderate elevation of the right hemidiaphragm 15Impression: There is no mammographic evidence of malignancy. A 1 year screening mammogram is recommended. 16Bilateral nuclear sclerotic cataract Bilateral retinal drusen Could be a precursor to AMD To take Machealth and do scans in 6 months Bilateral hypertensive retinopathy, severity of condition is mild, Grade I Hyperopia Astigmatism Presbyopia 17No acute intracranial abnormality 18c/o MCINTYRE 19There is no mammographic evidence of malignancy. A 1yr screening mammogram is recommended. 20no mammographic evidence of malignancy . 1 year screening mammogram recommended [id number] 22Small benign appearing lymph nodes bilaterally 23WNL/REPEAT 1 YR 24wnl repeat 1 yr 25dr. cousins 26[facility] 27tubular adenoma 28normal 29Right 30Right 31Left 32Right Social History Social History Type Response Tobacco 1 Smoking Status Never smoked cigaret michel Sex Female 1none Patient Care team information Care Team Personnel Name: MD Carlos, Daniel Lancaster Position: Physician - Family Med Member Role: Lifetime Relationship Address: Address: [facility] [address] Name: MD Lalo, Larry Coe Position: Physician Member Role: Lifetime Relationship Address: Address: [address] [place] [address] [place] Name: BAM Mera Shari A Position: Nurse Pract - Family Med Member Role: Primary Care Provider Address: Address: [address] [place] [address] Care Team Related Persons Name: GERALDINE ELMORE
--- OUTSIDE RECORDS SUMMARY | 2023-10-22 10:19 | External Medical Summary | Continuity of Care Document ---
Author Name Unknown Organization [facility] [address] Address [address] [place], [place] [id number] Care Team Providers Care Enterprise Infrastructure Architect Name Role Phone China Mera Primary Care Physician [phone] [id number] Date(s): 05/20/23 - 05/20/[address] [facility] [address] [facility] [address] [phone] Encounter Diagnosis Impaired fasting glucose(Final) - Hyperlipidemia, unspecified(Final) - Discharge Disposition: Home or Self Care Attending [...] information-source unspecified 3Result Comment: witnessed by Judy Quijano LPN Medications clobetasol 0.05% topical lotion Start: 08/19/22 12:11:00 EST, See Instructions, Disp# 30 mL, Refills: 1, for vaginal itching apply a thin film up to twice daily prn 14 days at time, [id number] Start Date: 08/19/22 Status: Ordered clopidogrel 75 mg oral tablet Start: 06/07/22 13:27:00 EST, See Instructions, Disp# 90 tab, Refills: 3, TAKE 1 TABLET BY MOUTH EVERY DAY, Pharmacy: [id number] Start Date: 06/07/22 Status: Ordered dexamethasone 0.5 mg/5 mL oral liquid Start: 03/29/22 16:01:00 EDT, See Instructions, Disp# 240 mL, Refills: 1, SWISH AND SPIT 5 MLS BY MOUTH 2 TIMES A DAY, Pharmacy: [facility] Start Date: 03/29/22 Status: Ordered elppa CoQ10 50 mg oral capsule Start: 10/27/20 12:48:00 EDT, 200 mg =, PO, Daily Start Date: 10/27/20 Status: Ordered famotidine 20 mg oral tablet Start: 03/17/23 8:49:00 EDT, 1 tab, PO, Daily, Disp# 30 tab, Refills: 11, [id number] Start Date: 03/17/23 Stop Date: 03/11/24 Status: Ordered juice plus Start: 06/03/16 13:40:00, juice plus, 1 cap, PO, Daily Start Date: 06/03/16 Status: Ordered levothyroxine 137 mcg (0.137 mg) oral tablet Start: 05/04/23 14:46:00 EDT, See Instructions, Disp# 90 tab, Refills: 3, TAKE 1 TABLET BY MOUTH EVERY DAY, Pharmacy: [facility] #[id number] Start Date: 05/04/23 Status: Ordered pantoprazole 20 mg oral delayed release tablet Start: 04/13/23 15:40:00 EDT, See Instructions, Disp# 90 tab, Refills: 3, TAKE 1 TABLET BY MOUTH EVERY DAY, Pharmacy: [facility] #[id number] Start Date: 04/13/23 Status: Ordered pravastatin 40 mg oral tablet Start: 08/17/22 9:05:00 EST, 1.5 tab, PO, Daily, Disp# 90 tab, Refills: 3, Pharmacy: [facility] #[id number] Start Date: 08/17/22 Status: Ordered triamcinolone 0.1% topical cream Start: 03/04/21 11:42:00 EDT, 1 appl, topical, bid, Disp# 15 g, Refills: 1, apply to dermatitis on the ankle until clear, Pharmacy: [facility] #[id number] Start Date: 03/04/21 Status: Ordered unknown [...] Active Osteoarthritis Confirmed Active Durable power of research attorney for healthcare exists but copy not available Confirmed Active Sleep apnea 2 Confirmed Active COVID-19 vaccination declined Confirmed Active Weight disorder Confirmed Active 33869, Tee, follow up prn 2Has CPAP but doesn't uses it Procedures Procedure Date Related Diagnosis Body Site [...] significant stenosis, occlusion, or aneurysm within the [place]. 2. No signficant stenosis, occlusion, [...] malignancy . 1 year screening mammogram recommended 13Q7-O5 22Small benign appearing lymph nodes bilaterally 23WNL/REPEAT 1 YR 24wnl repeat 1 yr 25dr. cousins [facility] 27tubular adenoma 28normal 29Right 30Right 31Left 32Right Results Laboratory List Name Date Hemoglobin A1C (HEMOGLOBIN, A1C) 3 Lipid Profile (LIPOPROTEINS) 05/20/23 Most recent to oldest [Reference Range]: 1 Estimated Average Glucose 120 mg/dL 1 (05/20/23 8:11 AM) Non-HDL 174 mg/dL 2 (05/20/23 8:11 AM) Chol/HDL 5 (05/20/23 8:11 AM) Chol [125-200 mg/dL] 221 mg/dL *HI* (05/20/23 8:11 AM) HbA1c [4.0-6.0 %] 5.8 % (05/20/23 8:11 AM) HDL [>35 mg/dL] 47 mg/dL (05/20/23 8:11 AM) LDL Chol, Calculated [50-130 mg/dL] 142 mg/dL *HI* (05/20/23 8:11 AM) TG [<200 mg/dL] 160 mg/dL (05/20/23 8:11 AM) 1Result Comment: Testing Performed By: Dept of Pathology [facility] [address], [address] [place] [address] 2Result Comment: Testing Performed By: Dept of Pathology [facility], [address] [place] [address] Social History Social History Type Response Tobacco 1 Smoking Status Never smoked cigaret michel Sex Female 1none Patient Care team information Care Team Personnel Name: MD Carlos, Daniel Lancaster Position: Physician - Family Med Member Role: Lifetime Relationship Address: Address: [address] [place] [address] [place] Name: MD Lalo, Larry Coe Position: Physician Member Role: Lifetime Relationship Address: Address: [address] [place] [address] [place] Name: BAM Mera Shari A Position: Nurse Pract - Family Med Member Role: Primary Care Provider Address: Address: [address] [place] [address] Care Team Related Persons Name: GERALDINE ELMORE
--- OUTSIDE RECORDS SUMMARY | 2023-10-22 10:19 | External Medical Summary | Continuity of Care Document ---
Author Name Unknown Organization [facility] [address] Address [address] [place], [place] [id number] Care Team Providers Care Social Media Strategist Name Role Phone China Mera Primary Care Physician [phone] Encounter [facility] [id number] Date(s): 09/08/23 - 09/08/23 [facility] [address] 1 [facility] [phone] Discharge Disposition: Home or Self Care Attending Physician: BAM Mera Shari A Referring Physician: BAM Mera Amy L Allergies, Adverse Reactions, Alerts Substance Reaction Severity Status codeine chest pain Active Vicodin chest pain Active naproxen hives Active aspirin hives Active penicillins hives Active HMG-CoA reductase inhibitors leg pain Active Wellbutrin pain in legs Active Immunizations Given and Recorded Vaccine Date [...] daily prn 14 days at time, [id number] Start Date: 08/19/22 Status: Ordered clopidogrel 75 mg oral tablet Start: 06/20/23 13:29:00 EST, See Instructions, Disp# 90 tab, Refills: 3, TAKE 1 TABLET BY MOUTH EVERY DAY, [id number] Start Date: 06/20/23 Status: Ordered dexamethasone 0.5 mg/5 mL oral liquid Start: 03/29/22 16:01:00 EDT, See Instructions, Disp# 240 mL, Refills: 1, SWISH AND SPIT 5 MLS BY MOUTH 2 TIMES A DAY, Pharmacy: [facility] [id number] Start Date: 03/29/22 Status: Ordered elppa CoQ10 50 mg oral capsule Start: 10/27/20 12:48:00 EDT, 200 mg =, PO, Daily Start Date: 10/27/20 Status: Ordered famotidine 20 mg oral tablet Start: 03/17/23 8:49:00 EDT, 1 tab, PO, Daily, Disp# 30 tab, Refills: 11, [id number] Start Date: 03/17/23 Stop Date: 03/11/24 Status: Ordered fluvastatin 20 mg oral capsule Start: 07/28/23 17:06:00 EST, 1 cap, PO, qhs, Disp# 30 cap, Refills: 5, [id number] Start Date: 07/28/23 Stop Date: 01/24/24 Status: Ordered fluvastatin 20 mg oral capsule Start: 08/30/23 12:36:00 EST, 3 cap, PO, qhs, Disp# 270 cap, Refills: 3, Pharmacy: [facility] #[id number] Start Date: 08/30/23 Stop Date: 08/24/24 Status: Ordered juice plus Start: 06/03/16 13:40:00, juice plus, 1 cap, PO, Daily Start Date: 06/03/16 Status: Ordered levothyroxine 137 mcg (0.137 mg) oral tablet Start: 05/04/23 14:46:00 EDT, See Instructions, Disp# 90 tab, Refills: 3, TAKE 1 TABLET BY MOUTH EVERY DAY, [id number] Start Date: 05/04/23 Status: Ordered pantoprazole 20 mg oral delayed release tablet Start: 04/13/23 15:40:00 EDT, See Instructions, Disp# 90 tab, Refills: 3, TAKE 1 TABLET BY MOUTH EVERY DAY, Pharmacy: [facility] #[id number] Start Date: 04/13/23 Status: Ordered triamcinolone 0.1% topical cream Start: 03/04/21 11:42:00 EDT, 1 appl, topical, bid, Disp# 15 g, Refills: 1, apply to dermatitis on the ankle until clear, Pharmacy: [facility] #[id number] Start Date: 03/04/21 Status: Ordered unknown [...] Active Osteoarthritis Confirmed Active Durable power of state attorney for healthcare exists but copy not available Confirmed Active Sleep apnea 2 Confirmed Active COVID-19 vaccination declined Confirmed Active Weight disorder Confirmed Active 07852, Tee, follow up prn 2Has CPAP but [...] tunnel release 2010 Completed Fracture of hand 30 2006 Compl eted Arthroscopy of knee 2005 [...] significant stenosis, occlusion, or aneurysm within the [place]. 2. No signficant stenosis, occlusion, [...] malignancy . 1 year screening mammogram recommended 67O1-W9 22Small benign appearing lymph nodes bilaterally 23WNL/REPEAT 1 YR 24wnl repeat 1 yr 25dr. cousins 26[facility] 27tubular adenoma 28normal 29Right 30Right 31Left 32Right Results Laboratory List Name Date Hemoglobin A1C (HEMOGLOBIN, A1C) 09/08/23 Most recent to oldest [Reference Range]: 1 Estimated Average Glucose 123 mg/dL 1 (09/08/23 7:58 AM) HbA1c [4.0-6.0 %] 5.9 % (09/08/23 7:58 AM) 1Result Comment: Testing Performed By: Dept of Pathology [facility] [address], [address], [place] [address] Social History Social History Type Response Tobacco 1 Smoking Status Never smoked cigaret michel Sex Female 1none Patient Care team information Care Team Personnel Name: MD Gonzalez Jonathan D Position: Physician - Family Med Member Role: Lifetime Relationship Address: Address: [facility] [address] Name: MD Lalo, Larry Coe Position: Physician Member Role: Lifetime Relationship Address: Address: [address] [place] [address] Name: BAM Mera Shari A Position: Nurse Pract - Family Med Member Role: Primary Care Provider Address: Address: [address] [place] [address] Care Team Related Persons Name: GERALDINE ELMORE
--- OUTSIDE RECORDS SUMMARY | 2023-10-22 10:19 | External Medical Summary | Continuity of Care Document ---
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 Name Role Phone China Mera Primary Care Physician [phone] Encounter [facility] [id number] Date(s): 09/22/23 - 09/22/[address], [address] [phone] Encounter Diagnosis Hyperlipidemia(Discharge Diagnosis) - 09/21/23 Hypothyroid(Discharge Diagnosis) - 09/21/23 Body mass index [BMI] 34.0-34.9, adult(Discharge Diagnosis) - 09/22/23 Prediabetes(Discharge Diagnosis) - 09/22/23 Discharge Disposition: Home or Self Care Attending Physician: BAM Mera Shari A Referring Physician: BAM Mera Shari A Allergies, Adverse Reactions, Alerts Substance Reaction Severity Status codeine chest pain Active Vicodin chest pain Active naproxen hives Active aspirin hives Active penicillins hives Active HMG-CoA reductase inhibitors leg pain Active Wellbutrin pain in legs Active Assessment and Plan Extracted from: Title:Office Visit Note Author:BAM Mera Sh ari A Date:09/22/23 1.Hyperlipidemia Chronic condition, goal stability.Repeat FLP in 3 months. Pravastatin increased to 40 mg. Continue co-Q10. 2.Hypothyroid Chronic condition, goal euthyroid with control of symptoms. Continue same. Obtain TSH with labs in 3 months. Time: 37 mins 5- pre-visit chart review 27- visit, inclusive of history, exam, and discussion of assessment/plan 5- post-visit documentation/orders/coordination of care Immunizations Given and Recorded Vaccine Date Status [...] daily prn 14 days at time, [facility]acy[id number] Start Date: 08/19/22 Status: Ordered clopidogrel 75 mg oral tablet Start: 09/22/23 8:45:00 EST, See Instructions, Disp# 90 tab, Refills: 3, TAKE 1 TABLET BY MOUTH EVERY DAY, Pharmacy: [id number] Start Date: 09/22/23 Status: Ordered dexamethasone 0.5 mg/5 mL oral liquid Start: 03/29/22 16:01:00 EDT, See Instructions, Disp# 240 mL, Refills: 1, SWISH AND SPIT 5 MLS BY MOUTH 2 TIMES A DAY, Pharmacy: [id number] Start Date: 03/29/22 Status: Ordered elppa CoQ10 50 mg oral capsule Start: 10/27/20 12:48:00 EDT, 200 mg =, PO, Daily Start Date: 10/27/20 Status: Ordered famotidine 20 mg oral tablet Start: 03/17/23 8:49:00 EDT, 1 tab, PO, Daily, Disp# 30 tab, Refills: 11, Pharmacy: [id number] Start Date: 03/17/23 Stop Date: 03/11/24 Status: Ordered juice plus Start: 06/03/16 13:40:00, juice plus, 1 cap, PO, Daily Start Date: 06/03/16 Status: Ordered levothyroxine 137 mcg (0.137 mg) oral tablet Start: 05/04/23 14:46:00 EDT, See Instructions, Disp# 90 tab, Refills: 3, TAKE 1 TABLET BY MOUTH EVERY DAY, [id number] Start Date: 05/04/23 Status: Ordered lisinopril 5 mg oral tablet Start: 09/22/23 8:59:00 EST, 1 tab, PO, Daily, Disp# 30 tab, Refills: 3, Pharmacy: [id number] Start Date: 09/22/23 Stop Date: 01/20/24 Status: Ordered pantoprazole 20 mg oral delayed release tablet Start: 04/13/23 15:40:00 EDT, See Instructions, Disp# 90 tab, Refills: 3, TAKE 1 TABLET BY MOUTH EVERY DAY, [id number] Start Date: 04/13/23 Status: Ordered pravastatin 40 mg oral tablet Start: 09/22/23 8:46:00 EST, 1 tab, PO, Daily, Disp# 90 tab, Refills: 3, [id number] Start Date: 09/22/23 Stop Date: 09/16/24 Status: Ordered triamcinolone 0.1% topical cream Start: 03/04/21 11:42:00 EDT, 1 appl, topical, bid, Disp# 15 g, Refills: 1, apply to dermatitis on the ankle until clear, [id number] Start Date: 03/04/21 Status: Ordered unknown [...] Active Osteoarthritis Confirmed Active Durable power of workers compensation attorney for healthcare exists but copy not available Confirmed Active Sleep apnea 2 Confirmed Active COVID-19 vaccination declined Confirmed Active Weight disorder Confirmed Active [id number], Tee, follow up prn 2Has CPAP but doesn't uses it Diagnosis Diagnosis Type Effective Dates Health Status Clinical Service Informant Hyperlipidemia Discharge Diagnosis 09/21/23 Hypothyroid Discharge Diagnosis 09/21/23 Body mass index [BMI] 34.0-34.9, adult Discharge Diagnosis 09/22/23 Non-Specified Prediabetes Discharge Diagnosis 09/22/23 Non-Specified Procedures Procedure Date Related Diagnosis Body [...] Left Shoulder 26 10/06/12 Compl eted Colonoscopy 08/06/11 Completed DEXA - Dual energy X-ray fiona ton absorptiometry 07/30/10 Completed CTR - Carpal tunnel release 2010 Completed Fracture of hand 30 2006 Compl eted Arthroscopy of knee 31 2005 Co mpleted Fracture of hand 32 [...] significant stenosis, occlusion, or aneurysm within the [place]. 2. No signficant stenosis, occlusion, [...] malignancy . 1 year screening mammogram recommended [id number] 22Small benign appearing lymph nodes bilaterally 23WNL/REPEAT 1 YR 24wnl repeat 1 yr 25dr. cousins 26[facility] 27tubular adenoma 28normal 29Right 30Right 31Left 32Right Vital Signs Most recent to oldest [Reference Range]: 1 Height 160.5 cm (09/22/23 8:27 AM) Patient Weight 88.8 kg (09/22/23 8:27 AM) Body Mass Index 34.47 kg/m2 (09/22/23 8:27 AM) Temperature [36.5-37.9 DegC] 36.8 DegC (09/22/23 8:27 AM) Heart Rate 87 bpm (09/22/23 8:27 AM) Respiratory Rate 16 br/min (09/22/23 8:27 AM) Blood Pressure 140/86mmHg (09/22/23 8:27 AM) Social History Social History Type Response Tobacco 1 Smoking Status Never smoked cigaret michel Sex Female 1none [facility] Outpt Note * BAM Mera Shari A: PERFORM, MODIFY, MODIFY, MODIFY, MODIFY Event Display: [facility] Outpt Note Authored Date: [id number] Chief Complaint 6 month follow up History of Present Illness 78-year-old female here today for follow-up. History of hyperlipidemia. On statin therapy. Cholesterol elevated. Had beentaking1 tablet of fluvastatin. Taking co-Q10 to mitigate statin induced myalgias. Wants to restart pravastatin. Prior CVA history. She is not interested in vaccinations. Her mammogram and DEXA scan are up-to-date. She is also up-to-date on her eye exam. She wears dentures. Review of Systems Constitutional: No fever, No chills, No fatigue._ Respiratory: No shortness of breath, No cough, No wheezing. _ Cardiovascular: no lightheadedness/presyncope, No chest pain, No palpitations._ Gastrointestinal: No nausea, No vomiting, No diarrhea, No constipation, No heartburn, No abdominal pain._ Musculoskeletal: No back pain, No neck pain, No joint pain, No muscle pain, No decreased range ofmotion, No trauma._ Skin: No rash, No pruritus, No breakdown._ Neurologic: No abnormal balance, No numbness, No tingling, No headache._ Physical Exam Vitals & Measurements T:36.8C HR:87(Monitored) RR:16 BP:140/86 SpO2:97% HT:160.5cm WT:88.8kg WT:88.800kg(Dosing) BMI:34.47 General: _Alert and oriented, No acute distress HEENT: _ Normocephalic, atraumatic, EOMI, PERRLA+2, TM clear, Nl gross hearing, moist oral mucosa _ Neck: _ Supple, no lymphadenopathy or thyromegaly Cardiovascular: _Normal rate, Regular rhythm, No murmur, No gallop. Normal peripheral perfusion, No edema Respiratory: _Lungs are clear to auscultation, Respirations are non-labored, Breath sounds are equal Gastrointestinal: _Soft, Non-tender, Non-distended, Normal bowel sounds. No hepatosplenomegaly. Musculoskeletal: _Normal range of motion, normal strength. Neurologic: Normal sensory, Normal motor function, CN II-XII grossly intact. Integumentary: _Warm, Dry, [place]. Psych: Mood-affect congruence. Reports no SI/HI. Speech is of normal pace and content Assessment/Plan 1.Hyperlipidemia Chronic condition, goal stability.Repeat FLP in 3 months. Pravastatin increased to 40 mg. Continue co-Q10. 2.Hypothyroid Chronic condition, goal euthyroid with control of symptoms. Continue same. Obtain TSH with labsin 3 months. Time: 37 mins 5- pre-visit chart review 27- visit, inclusive of history, exam, and discussion of assessment/plan 5- post-visit documentation/orders/coordination of care Problem List/Past Medical History Ongoing COVID-19 vaccination declined DDD (degenerative disc disease), lumbar Durable power of workers compensation attorney for healthcare exists but copy not available GERD 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 Hyperlipidemia Hypothyroid Lichen planus Macular degeneration Osteoarthritis Right pontine stroke Sleep apnea Weight disorder Historical Anxiety DEPRESSION Elevated blood pressure reading without diagnosis of hypertension Lumbar radiculopathy Right ankle pain Wrist pain, right Procedure/Surgical History Mammogram (04/01/2023)Bone density scan (04/01/2023)Mammogram (03/26/2021)Eye examination (10/03/2020)CT angiography of head and neck (10/01/2020)MRI of brain without contrast (09/28/2020)CT of head without contrast (09/28/2020)Chest x-ray (09/28/2020)Cataracts (02/26/2020 )Surgery (09/07/2019)Mammogram - screening (03/22/2019)Mammogram (03/22/2018)DEXA - Dual energy X-ray photon absorptiometry (03/20/2018)Chest CT (04/21/2017)Chest x-ray (04/12/2017)Mammogram (03/18/2017)Examination of eye (07/13/2016)CT head w/o contrast (07/09/2016)Emergency department patient visit (07/09/2016)Mammogram (03/16/2016)Mammogram (03/14/2015)Epidural steroid injection (02/26/2015)Ultrasound scan of thyroid (12/10/2014)Mammogram (03/13/20 14)Shave biopsy (01/15/2014)mammo (03/12/2013)epidural steroid shots (10/12/2012)XR Left Shoulder (10/06/2012)Colonoscopy (08/06/2011)DEXA - Dual energy X-ray photon absorptiometry (07/30/2010)CTR - Carpal tunnel release (2010)Fracture of hand (2006)Arthroscopy of knee (2005)Fracture of hand (2005)left knee replacement (01/24/2003)Total prosthetic arthroplasty of left knee (2002)TonsillectomyCholecystectomyhysterectomyright ankle fracture repairknee arthroscopy Medications ascorbic acid(Vitamin C 500 mg oral tablet), 1000 mg= 2 tab, PO, Daily cholecalciferol(Vitamin D3 2000 intl units oral tablet), 2000 Int_Unit= 1 tab, PO, Daily clobetasol topical(clobetasol 0.05% topical lotion), See Instructions, 1 refills clopidogrel(clopidogrel 75 mg oral tablet), See Instructions, 3 refills dexamethasone(dexamethasone 0.5 mg/5 mL oral liquid), See Instructions famotidine(famotidine 20 mg oral tablet), 20 mg= 1 tab, PO, Daily, 11 refills fluvastatin(fluvastatin 20 mg oral capsule), 60 mg= 3 cap, PO, qhs, 3 refills levothyroxine(levothyroxine 137 mcg (0.137 mg) oral tablet), See Instructions, 3 refills pantoprazole(pantoprazole 20 mg oral delayed release tablet), See Instructions, 3 refills triamcinolone topical(triamcinolone 0.1% topical cream), 1 appl, topical, bid, 1 refills ubiquinone(elppa CoQ10 50 mg oral capsule), 200 mg, PO, Daily unknown medication(juice plus), 1 cap, PO, Daily unknown medication zinc sulfate(Zinc) Allergies HMG-CoA reductase inhibitorsleg pain Vicodinchest pain Wellbutrinpain in legs aspirinhives codeinechest pain naproxenhives penicillinshives Social History Smoking Status Never smoked cigarettes Alcohol - Comments: none Home/Environment - Comments: everyone moved out of house - now with her dogs and cat. oldest son - [employer], daughter - [place], younger on - [employer] [facility] [employer]. one in [place]. sister in law - 8 min away, sister in [place] grandson and son lives with her. Other - Comments: dexa 07/30/10- normal declined zostavax. last td - 03/18/2008, pneumovax - 03/18/2008. colonoscopy - 2010. mammo - yrly Tobacco - Comments: none Family History Gall bladder disease: Unknown. Headache: Unknown. Heart attack: Father. Heart disease: Father. High Blood Pressure: Mother and Father. Kidney disease: Father. Osteoporosis: Mother. Peripheral neuropathy..: Father. Stroke: Mother and Father. Thyroid disease: Unknown. Health Status Family Member(s) Immunizations Vaccine Date Status tetanus toxoids-diphtheria, Td (Adult) 07/24/2018 Given pneumococcal 13-valent vaccine 12/08/2015 Given Comments : witnessed by Judy Quijano LPN tetanus/diphtheria/pertuss, acel (Tdap) 03/18/2008 Recorded pneumococcal 23-valent vaccine 03/18/2008 Recorded influenza virus vaccine, inactivated 2006 Recorded tetanus toxoids-diphtheria, Td (Adult) 12/08/1998 Recorded Comments : 2021-05-06: Historical information-source unspecified tetanus toxoids-diphtheria, Td (Adult) 03/25/1996 Recorded Comments : 2021-05-06: Historical information-source unspecified Recommendations Health Maintenance Pending(in the next year) OverDue Adult Influenza Vaccine due01/21/23and every 1year Medicare Annual Wellness Visit due03/19/23and every 1year Due Adult COVID-19 Vaccination due09/22/23Unknown Frequency Adult Social Determinants of Health Screening due09/22/23Unknown Frequency Shingles Vaccine due09/22/23One-time only Satisfied(in the past 1 year) Satisfied Body Mass Index on09/22/23.Satisfied by YVON Condon, Radha Breast Cancer Screening on04/01/23.Satisfied by FLAKITO Mccormick, Luana Lipid Screening on09/12/23.Satisfied by Contributor_system, Smallable Osteoporosis Screening on04/01/23.Satisfied by BARON Puckett Lynnae Electronic Signature on File Electronically Reviewed/Signed by: BAM Nagel Author Signature Dt/Tm:09/22/2023 02:26 PM Department of Family Medicine [facility] Patient Care team information Care Team Personnel Name: MD Carlos, Daniel Lancaster Position: Physician - Family Med Member Role: Lifetime Relationship Address: Address: [facility] [place] [address] [place] Name: MD Lalo, Larry Coe Position: Physician Member Role: Lifetime Relationship Address: Address: [address] [place] [address] [place] Name: BAM Mera, China Yeung Position: Nurse Pract - Family Med Member Role: Primary Care Provider Address: Address: [address] [place] [address] Care Team Related Persons Name: GERALDINE ELMORE
--- OUTSIDE RECORDS SUMMARY | 2023-10-22 10:19 | External Medical Summary | Summary of Care ---
Author Name Unknown Organization [facility] Address [address] [place] [address] Phone [phone] Care Team Providers Care Labeling Strategist Name Role Phone YaraChina jones Michaelfroylan BAM Primary Care Provider Reason for Visit * Reason Comments NEW PATIENT Tinnitus and hearing loss Encounter Details Date Type Department Care Team (Late st Contact Info) Description 07/04/2023 10:00 AM EST Office Visit [facility] [address] [facility] [address] Floyd Vance DO [address] [facility], [place] [address] Tinnitus, subjective, bilateral*; Sensorineural hearing loss (SNHL) of both ears Allergies Active Allergy Reactions Criticality Noted Date Comments Antihistamines, Diphenhydramine-Type 06/21/2003 Lowers B/P Aspirin 06/21/2003 hives Morphine And Related 06/21/2003 Pains in Chest Naproxen 11/15/2000 Hives Niacin 11/15/2000 Red Splotches Nsaids 11/15/2000 Hives Penicillins 11/15/2000 Hives Statins 11/19/2003 myalgias Sympathomimetics 11/07/2001 ephrine Vicodin 06/21/2003 Pain in chest Bupropion Hcl 12/18/2004 hives documented as of this encounter (statuses as of 07/04/2023) Medications Medication Sig Dispensed Refills Start Date End Date Status VITAMIN C 1000 MG PO TABS 1 TABLET DAILY AT DINNER 0 07/07/2006 Active CALCIUM + D 600-200 MG-UNIT PO TABS 2 tabs po daily 60 5 12/09/2006 Active EXCEDRIN PM 500-25 MG PO CAPS as directed as needed 0 03/23/2007 Active FISH OIL 1200 MG PO CAPS One capsule bid 0 0 12/09/2008 Active PHENERGAN 25 MG PO TABSIndications:Nausea alone 1/2 tab by mouth every 6 hours as needed for nausea 60 1 06/27/2009 Active Additional Information Patient not taking.Reported on 07/04/2023 PRAVACHOL 20 MG PO TABSIndications:Dyslip idemia, goal LDL below 130 two pills by mouth once a day 60 Tab 3 04/23/2010 Active Additional Information Patient not taking.Reported on 07/04/2023 LORAZEPAM 1 MG PO TABSIndications:Anxiet y state,Insomnia, unspecified TAKE 1 TABLET BY MOUTH AT BEDTIME NEEDED FOR SLEEP 30 Tab 2 05/27/2010 Active Additional Information Patient not taking.Reported on 07/04/2023 ZOLOFT 50 MG PO TABSIndications:Anxiet y state One pill by mouth once a day 30 Tab 5 05/29/2010 Active Additional Information Patient not taking.Reported on 07/04/2023 ULTRAM 50 MG PO TABSIndications:Tenosy novitis, de Quervain,Generalized osteoarthritis 1 tablet every 6 hours as needed for pain 100 Tab 3 06/15/2010 Active Additional Information Patient not taking.Reported on 07/04/2023 LEVOXYL 137 MCG PO TABSIndications:Hypoth yroidism One pill by mouth once a day with a glass of water 90 Tab 3 06/15/2010 Active PROTONIX 40 MG PO TBECIndications:Esopha geal reflux One tablet twice a day 60 Tab 5 06/15/2010 Active LORAZEPAM 0.5 MG PO TABSIndications:Anxiet y state take 1 tablet by mouth three times a day 90 Tab 1 06/17/2010 Active Additional Information Patient not taking.Reported on 07/04/2023 Clopidogrel Bisulfate 75 MG Oral Tablet (pLAVix) Take 1 Tablet by mouth in the morning. 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 ADJ DISORDER W/DEPRES MOOD 11/30/2004 Dyslipidemia, goal to be determined 11/19/2003 Menopause 11/15/2000 TOX DIF GOITER NO CRISIS Sleep apnea Overview: Cpap with oxygen at 2 lpm documented as of this encounter (statuses as of 07/04/2023) Resolved Problems Problem Noted Date Diagnosed Date Resolved Date HYPERTENSION NOS 02/24/2006 documented as of this encounter (statuses as of 07/04/2023) Immunizations Name Administration Dates Next Due Pneumococcal Polysaccharide PPV23 (Pneumovax) TDAP (age 11 and older)(Adacel) 03/18/2008 documented as of this encounter Social History Tobacco Use Types Packs/Day Years Used Date Smoking Tobacco: Never Smokeless Tobacco: Never Tobacco Cessation:Counseling Given: Not Answered Alcohol Use Standard Drinks/Week Comments No 0 (1 standard drink = 0.6 oz pur e alcohol) Sex and Gender Information Value Date Recorded Sex Assigned at Not on file Gender Identity Not on file Sexual Orientation Not on file Job Start Date Occupation Industry Not on file Not on file Not on file documented as of this encounter Last Filed Vital Signs Vital Sign Reading Time Taken Comments Blood Pressure - - Pulse - - Temperature 36.9 C (98.5 F) 07/04/2023 9:55 AM ES T Respiratory Rate - - Oxygen Saturation - - Inhaled Oxygen Concentration - - Weight 89.7 kg (197 lb 12.8 oz) 07/04/2023 9:55 AM EST Height 163.8 cm (5' 4.49") 07/04/2023 9:55 AM ES T Body Mass Index 33.44 07/04/2023 9:55 AM EST documented in this encounter Progress Notes * Floyd Vance, DO - 07/04/2023 9:59 AM EST Images from the original note were not included. 07/04/2023 HISTORY OF PRESENT ILLNESS This 78 year old YO female is seen at the request of BAM Nagel for the evaluation of bilateral tinnitus (nonpulsatile). She describes the tinnitus as high-pitched in nature. This has beenpresent for many years. Also has hearing loss for which she wears bilateral hearing aids. No previous otologic surgery. No history of recurrent otitis media. Has tried lipoflavinoid in the past withou t improvement. Problem List Patient Active Problem List Diagnosis Code Menopause Z78.0 Dyslipidemia, goal to be determined E78.5 ADJ DISORDER W/DEPRES MOOD F43.21 TOX DIF GOITER NO CRISIS E05.00 ADVANCE DIRECTIVE INFORMATION Special screening for malignant neoplasms, colon Z12.11 SPINAL STENOSIS-LUMBAR M48.061 Sleep apnea G47.30 Esophageal reflux K21.9 Hypersomnia with sleep apnea G47.10, G47.30 HYPOXEMIA: severe nocturnal R09.02 Hypothyroidism E03.9 Severe obesity with body mass index (BMI) of 35.0 to 39.9 with serious comorbidity (HCC) E66.01 Past Medical History: Diagnosis Date Adjustment disorder with depressed mood 11/30/2004 Esophageal reflux 05/29/2007 HTN, goal to be determined HYPERLIPIDEMIA NEC/NOS 11/19/2003 HYPOXEMIA: severe nocturnal 05/23/2008 Sleep apnea cpap with oxygen Spinal stenosis of lumbar region without neurogenic claudication 01/13/2007 Throat pain 07/01/200602/2006 Toxic diffuse goiter Past Surgical History: Procedure Laterality Date ARTHROPLASTY KNEE TOTAL 01/24/03 LTKR() COLONOSCOPY, GI REFERRAL OP 11/22 polyps-repeat 5 years COLONOSCOPY, GI REFERRAL OP 04/14/06 diverticulosis, repeat 10 years COLORECTAL CANCER SCREEN; COLON 9/97 EGD, FLEXIBLE, W/BIOPSY 05/19/07 normal biopsies GALLBLADDER/CHOLECYSTO W/CONT HOME NOCTURNAL OXIMETRY 04/21/2007 cpap and oxygen at 2 lpm see scanned report much improved study INFORMATION 1980 thyroid INFORMATION 01/04/06 orthroscopy debridement left knee INFORMATION 09/20/06 tendon sheath X2 right hand LIGATE/CUT OVIDUCT(S) Tubal Ligation MAMMOGRAM - BILATERAL 12/30/03 birad code 2 MAMMOGRAM - BILATERAL 02/28/06 birad code 2 MAMMOGRAM - BILATERAL 8.8.07 benign findings, yearly mammograms appropriate, birad code 2 MAMMOGRAM - BILATERAL 03/05/09 birad code 2 REMOVE GALLBLADDER 12/1993 REMOVE WRIST GANGLION 11/26 Ganglion Cyst Wrist Excis Primary STRESS ECHO (EXERCISE) 04/18/2008 normal, Dr Yola Villalobos TOTAL ABD HYSTERECTOMY W/WO REMOVAL OF TUBE(S) YAMINI (Total Abdominal Hysterectomy)/Has ovaries Medications Current Outpatient Medications Medication Sig Dispense Refill VITAMIN C 1000 MG PO TABS 1 TABLET DAILY AT DINNER 0 CALCIUM + D 600-200 MG-UNIT PO TABS 2 tabs po daily 60 5 EXCEDRIN PM 500-25 MG PO CAPS as directed as needed 0 FISH OIL 1200 MG PO CAPS One capsule bid 0 0 LEVOXYL 137 MCG PO TABS One pill by mouth once a day with a glass of water 90 Tab 3 PROTONIX 40 MG PO TBEC One tablet twice a day 60 Tab 5 Clopidogrel Bisulfate 75 MG Oral Tablet (pLAVix) Take 1 Tablet by mouth in the morning. PHENERGAN 25 MG PO TABS 1/2 tab by mouth every 6 hours as needed for nausea (Patient not taking: Reported on 07/04/2023) 60 1 PRAVACHOL 20 MG PO TABS two pills by mouth once a day (Patient not taking: Reported on 07/04/2023) 60 Tab 3 LORAZEPAM 1 MG PO TABS TAKE 1 TABLET BY MOUTH AT BEDTIME NEEDED FOR SLEEP (Patient not taking: Reported on 07/04/2023) 30 Tab 2 ZOLOFT 50 MG PO TABS One pill by mouth once a day (Patient not taking: Reported on 07/04/2023) 30 Tab 5 ULTRAM 50 MG PO TABS 1 tablet every 6 hours as needed for pain (Patient not taking: Reported on 07/04/2023) 100 Tab 3 LORAZEPAM 0.5 MG PO TABS take 1 tablet by mouth three times a day (Patient not taking: Reported on 07/04/2023) 90 Tab 1 No current facility-administered medications for this visit. Allergies Review of patient's allergies indicates: Allergen Reactions Antihistamines, Diphenhydramine-Type Lowers B/P Aspirin hives Morphine And Related Pains in Chest Naproxen Hives Niacin Red Splotches Nsaids Hives Penicillins Hives Statins myalgias Sympathomimetics ephrine Vicodin Pain in chest Wellbutrin [Bupropion Hcl] hives Family History Family History Problem Relation Age of Onset Heart Disorder Father CA age 79 Hypertension Mother Musculo-skeletal Disorder Mother osteoporosis Mental Disorder Sister depression Social History Social History Tobacco Use Smoking status: Never Smokeless tobacco: Never Substance Use Topics Alcohol use: No Vaping/E-Cigarette Use Vaping/E-Cigarette Substances Vaping/E-Cigarette Devices Review of Systems Negative for constitutional, eyes, cardiac, pulmonary, hepatic, renal, digestive, hematologic, epileptic, syncopal, musculo-skeletal, mental health, integumentary, hypertensive, lipid, arthritic, diabetic, thyroid, or neurologic disorders (except as listed in the PMH and Problem List). Physical Examination: Temp 36.9 C (98.5 F) (Tympanic) | Ht 1.638 m (5' 4.49") | Wt 89.7 kg (197 lb 12.8 oz) | BMI 33.44 kg/m | BSA 2.02 m PHYSICAL EXAM General: This is a healthy appearing female who appears her stated age. The patient is alert and appropriately verbally conversant without hoarseness. Face: The face was inspected and no cutaneous masses or lesions were visualized. There was no erythema or edema noted. Facial movement was symmetric without weakness. Eyes: Extra-ocular muscle function was intact. No nystagmus was observed. Pupils were equal. Cranial Nerves: Cranial nerves II, III, IV, and were noted to be intact via extra-ocular muscle movement testing. Cranial nerve VII noted to be intact and symmetric by facial movement. Nose: Examination of the nose revealed no masses, polyps, mucopus, or other lesion. The nasal septum was non-obstructing. The turbinates were without abnormality. Oral Cavity: Examination of the oral cavity revealed no mass lesions nor infection. The palate was noted to be intact without evidence of clefting. The tongue exhibited normal mobility. Mucosa was moist without lesion. The lips were free of lesion. Gums were free of inflammation. Dentition: Unremarkable Oropharynx: The oral pharynx was free of mass lesion or mucosal abnormality. The palate was noted to be without lesion. The uvula was normal appearing. The tonsils were unremarkable. Ears: Examination of the ears revealed that the auricles were normally formed with no lesions. The external auditory canals were cleaned of any obstructing cerumen. The tympanic membranes were intactand freely mobile to pneumatoscopy. There are no significant retraction pockets. There is no inflammation visualized. No effusions are seen. Neck: Visualization and palpation of the neck revealed no mass lesions, no thyromegaly or thyroid masses. No skin lesions or inflammatory processes were detected. The cervical musculature was normal to palpation. Lymphatics (cervical): There were no palpable lymph nodes in the posterior triangle, submandibular triangle, jugulodigastric region, or central neck. Lungs: Breathing quietly. No use of accessory muscles. Heart: Regular rate. No JVD. ASSESSMENT: Bilateral nonpulsatile tinnitus Sensorineural hearing loss PLAN: The patient was instructed tinnitus attenuation measures, primarily that trying to ignore the noiseis the best course of action. She was further instructed that avoidance of caffeine, alcohol, tobacco, stress and quiet places can be of benefit. She will follow up on an as needed basis. I spent a total of 45 minutes on the date of service in preparation, delivery, and documentation ofthe care provided to the above patient, excluding any time spent on the performance of any procedures or separately billable services. Floyd Vance DO, PRIS[facility] Otolaryngology Head and Neck Surgery [place], [place] 07/04/2023 10:50 AM documented in this encounter Nursing Notes * Taz Pantoja, [facility] - 07/04/2023 9:55 AM EST Chief Complaint Patient presents with NEW PATIENT Tinnitus and hearing loss Kate Kidd is a 78 year old female who presents today with bilateral tinnitus and hearing loss. She states that the ringing in her ears is high pitched and constant. She uses hearing aids. 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 documented in this encounter Plan of Treatment Health Maintenance Due Date Last Done Comments COVID-19 Vaccine (#1) 1943 Depression Screening 1955 Zoster Vaccines (1 of 2) 1993 TSH 06/02/2011 06/02/2010, 05/25, 07/26/2008, Additional history exists DXA Scan 12/18/2015 12/17/2008, 11/23, 03/03/2006, Additional history exists DTaP,Tdap,and Td Vaccines (2 - Td or Tdap) 03/18/2018 03/18/2008, 12/08/1998, 03/25/1996 Influenza Vaccine (FLU shot) (#1) 2023 06/21/2003 Pneumococcal Vaccine: 65+ Years Completed 12/08/2015, 03/18/2008 GARDASIL-HPV IMMUNIZATION SERIES Aged Out No longer eligible based on patient's age to complete this topic Hepatitis B Aged Out No longer eligi ble based on patient's age to complete this topic MENINGOCOCCAL (MENACTRA/MENVEO) Aged Out No longer eligible based on patient's age to complete this topic documented as of this encounter Medical Devices Not on filedocumented as of this encounter Visit Diagnoses Diagnosis Tinnitus, subjective, bilateral- Primary Sensorineural hearing loss (SNHL) of both ears documented in this encounter Advance Directives Latest Code Status on File Code Status Date Activated Date Inactivated Comments None 11/30/2004 8:50 AM 11/30/2004 8:50 AM Care Teams Labeling Strategist Relationship Specialty Start Date End Date China Mera CRNP 6 [facility] [address] [place] [address] PCP - General Nurse Practitioner 03/23/23 documented as of this encounter
--- OUTSIDE RECORDS SUMMARY | 2023-10-22 10:19 | External Medical Summary | Continuity of Care Document ---
Author Name Unknown Organization [facility] [address] Address [address] [place], [place] [id number] Care Team Providers Care Echo Technician Name Role Phone China Mera Primary Care Physician [phone] [id number] Date(s): 09/12/23 - 09/12/23 [facility] [address] [facility] [address] [phone] Encounter Diagnosis Hypothyroidism, unspecified(Final) - Hyperlipidemia, unspecified(Final) - Discharge Disposition: Home [...] daily prn 14 days at time, Pharmacy: [facility]/pharmacy #[id number] Start Date: 08/19/22 Status: Ordered clopidogrel 75 mg oral tablet Start: 06/20/23 13:29:00 EST, See Instructions, Disp# 90 tab, Refills: 3, TAKE 1 TABLET BY MOUTH EVERY DAY, Pharmacy: [facility]/pharmacy #[id number] Start Date: 06/20/23 Status: Ordered dexamethasone 0.5 mg/5 mL oral liquid Start: 03/29/22 16:01:00 EDT, See Instructions, Disp# 240 mL, Refills: 1, SWISH AND SPIT 5 MLS BY MOUTH 2 TIMES A DAY, Pharmacy: [facility] STORE [id number] Start Date: 03/29/22 Status: Ordered elppa CoQ10 50 mg oral capsule Start: 10/27/20 12:48:00 EDT, 200 mg =, PO, Daily Start Date: 10/27/20 Status: Ordered famotidine 20 mg oral tablet Start: 03/17/23 8:49:00 EDT, 1 tab, PO, Daily, Disp# 30 tab, Refills: 11, [id number] Start Date: 03/17/23 Stop Date: 03/11/24 Status: Ordered fluvastatin 20 mg oral capsule Start: 08/30/23 12:36:00 EST, 3 cap, PO, qhs, Disp# 270 cap, Refills: 3, [id number] Start Date: 08/30/23 Stop Date: 08/24/24 Status: Ordered juice plus Start: 06/03/16 13:40:00, juice plus, 1 cap, PO, Daily Start Date: 06/03/16 Status: Ordered levothyroxine 137 mcg (0.137 mg) oral tablet Start: 05/04/23 14:46:00 EDT, See Instructions, Disp# 90 tab, Refills: 3, TAKE 1 TABLET BY MOUTH EVERY DAY, Pharmacy: [facility]/pharmacy #[id number] Start Date: 05/04/23 Status: Ordered pantoprazole 20 mg oral delayed release tablet Start: 04/13/23 15:40:00 EDT, See Instructions, Disp# 90 tab, Refills: 3, TAKE 1 TABLET BY MOUTH EVERY DAY, Pharmacy: [facility]/pharmacy #[id number] Start Date: 04/13/23 Status: Ordered triamcinolone 0.1% topical cream Start: 03/04/21 11:42:00 EDT, 1 appl, topical, bid, Disp# 15 g, Refills: 1, apply to dermatitis on the ankle until clear, Pharmacy: [facility]/pharmacy #[id number] Start Date: 03/04/21 Status: Ordered unknown [...] Active Osteoarthritis Confirmed Active Durable power of optical fabricator for healthcare exists but copy not available Confirmed Active Sleep apnea 2 Confirmed Active COVID-19 vaccination declined Confirmed Active Weight disorder Confirmed Active 83884, Tee, follow up prn 2Has CPAP but [...] significant stenosis, occlusion, or aneurysm within the t[place] of [place]. 2. No signficant stenosis, occlusion, [...] malignancy . 1 year screening mammogram recommended [id number] 22Small benign appearing lymph nodes bilaterally 23WNL/REPEAT 1 YR 24wnl repeat 1 yr 25dr. cousins 26[facility] 27tubular adenoma 28normal 29Right 30Right 31Left 32Right Results Laboratory List Name Date Lipid Profile (LIPOPROTEINS) 09/12/23 Thyroid Stimulating Hormone (TSH) 4 Most recent to oldest [Reference Range]: 1 Non-HDL 200 mg/dL 1 (09/12/23 8:11 AM) Chol/HDL 5 (09/12/23 8:11 AM) Chol [125-200 mg/dL] 247 mg/dL *HI* (09/12/23 8:11 AM) HDL [>35 mg/dL] 47 mg/dL (09/12/23 8:11 AM) LDL Chol, Calculated [50-130 mg/dL] 166 mg/dL *HI* (09/12/23 8:11 AM) TG [<200 mg/dL] 171 mg/dL (09/12/23 8:11 AM) TSH [0.47-4.68 uIU/mL] 0.59 uIU/mL 2 (09/12/23 8:11 AM) 1Result Comment: Testing Performed By: [facility], [address] [place] [address] 2Result Comment: Testing Performed By: Dept of Pathology [facility], [address] [place] [id number] Social History Social History Type Response Tobacco 1 Smoking Status Never smoked cigaret michel Sex Female 1none Patient Care team information Care Team Personnel Name: MD Carlos, Daniel Lancaster Position: Physician - Family Med Member Role: Lifetime Relationship Address: Address: [facility] [place] [address] [place] Name: MD Lalo, Larry Coe Position: Physician Member Role: Lifetime Relationship Address: Address: [address] [place] [address] [place] Name: BAM Mera Shari A Position: Nurse Pract - Family Med Member Role: Primary Care Provider Address: Address: [address] [place] [address] Care Team Related Persons Name: GERALDINE ELMORE
--- OUTSIDE RECORDS SUMMARY | 2023-10-22 10:19 | External Medical Summary | Summary of Care ---
Author Name Unknown Organization [facility] Address [address] [place] [address] Phone [phone] Care Team Providers Care Media Center Assistant Name Role Phone China Mera Primary Care Provider Encounter Details Date Type Department Care Team (Late st Contact Info) Description 03/22/2023 Telephone Otolaryngology [facility] [address] [facility] [address] Floyd Vance DO [address] [facility], [place] [address] Allergies Active Allergy Reactions Criticality Noted Date Comments Antihistamines, Diphenhydramine-Type 06/21/2003 Lowers B/P Aspirin 06/21/2003 hives Morphine And Related 06/21/2003 Pains in Chest Naproxen 11/15/2000 Hives Niacin 11/15/2000 Red Splotches Nsaids 11/15/2000 Hives Penicillins 11/15/2000 Hives Statins 11/19/2003 myalgias Sympathomimetics 11/07/2001 ephrine Vicodin 06/21/2003 Pain in chest Bupropion Hcl 12/18/2004 hives documented as of this encounter (statuses as of 06/21/2023) Medications Medication Sig Dispensed Refills Start Date [...] needed for nausea 60 1 06/27/2009 Active PRAVACHOL 20 MG PO TABSIndications:Dyslipi demia, goal LDL below 130 two pills by mouth once a day 60 Tab 3 04/23/2010 Active LORAZEPAM 1 MG PO TABSIndications:Anxiety state,Insomnia, unspecified TAKE 1 TABLET BY MOUTH AT BEDTIME NEEDED FOR SLEEP 30 Tab 2 05/27/2010 Active ZOLOFT 50 MG PO TABSIndications:Anxiety state One pill by mouth once a day 30 Tab 5 05/29/2010 Active ULTRAM 50 MG PO TABSIndications:Tenosyn ovitis, de Quervain,Generalized osteoarthritis 1 tablet every 6 hours as needed for pain 100 Tab 3 06/15/2010 Active LEVOXYL 137 MCG PO TABSIndications:Hypothy roidism One pill by mouth once a day with a glass of water 90 Tab 3 06/15/2010 Active PROTONIX 40 MG PO TBECIndications:Esophag eal reflux One tablet twice a day 60 Tab 5 06/15/2010 Active LORAZEPAM 0.5 MG PO TABSIndications:Anxiety state take 1 tablet by mouth three times a day 90 Tab 1 06/17/2010 Active documented as of this encounter (statuses as of 06/21/2023) Active Problems Problem Noted Date Diagnosed Date [...] as of this encounter (statuses as of 06/21/2023) Resolved Problems Problem Noted Date Diagnosed Date Resolved Date HYPERTENSION NOS 02/24/2006 documented as of this encounter (statuses as of 06/21/2023) Immunizations Name Administration Dates Next Due Pneumococcal Polysaccharide PPV23 (Pneumovax) TDAP (age 11 and older)(Adacel) 03/18/2008 documented as of this encounter Social History Tobacco Use Types Packs/Day Years Used Date Smoking Tobacco: Never Alcohol Use Standard Drinks/Week Comments No 0 (1 standard drink = 0.6 oz pur e alcohol) Sex and Gender Information Value Date Recorded Sex Assigned at Not on file Gender Identity Not on file Sexual Orientation Not on file documented as of this encounter Miscellaneous Notes * Telephone Encounter - Rosalind Benítez OSA - 03/22/2023 7:42 AM EDT Called pt to schedule referral appt for bilateral tinnitus. Could not leave message with pt. Can schedule pt next available with any provider. Will try call again later. Rosalind Benítez documented in this encounter Plan of Treatment Upcoming Encounters Date Type Department Care Team (Late st Contact Info) Description 07/04/2023 10:00 AM EST Office Visit Otolaryngology [facility] [address] [address] Floyd Vance, [address] [place] [address] Health Maintenance Due Date Last Done Comments COVID-19 Vaccine (#1) 1943 Depression Screening 1955 Zoster Vaccines (1 of 2) 1993 Pneumococcal Vaccine: 65+ Years (2 - PCV) 03/18/2009 03/18/2008 TSH 06/02/2011 06/02/2010, 05/25, 07/26/2008, Additional history exists DXA Scan 12/18/2015 12/17/2008, 11/23, 03/03/2006, Additional history exists DTaP,Tdap,and Td Vaccines (2 - Td or Tdap) 03/18/2018 03/18/2008, 12/08/1998, 03/25/1996 Influenza Vaccine (FLU shot) (#1) 2023 06/21/2003 GARDASIL-HPV IMMUNIZATION SERIES Aged Out No longer eligible based on patient's age to complete this topic Hepatitis B Aged Out No longer eligi ble based on patient's age to complete this topic MENINGOCOCCAL (MENACTRA/MENVEO) Aged Out No longer eligible based on patient's age to complete this topic documented as of this encounter Medical Devices Not on filedocumented as of this encounter Advance Directives Latest Code Status on File Code Status Date Activated Date Inactivated Comments None 11/30/2004 8:50 AM 11/30/2004 8:50 AM Care Teams Media Center Assistant Relationship Specialty Start Date End Date China Mera CRNP [address] [facility] [address] [address] [place] [address], [place] [address] PCP - General Nurse Practitioner 03/23/23 documented as of this encounter
--- OUTSIDE RECORDS SUMMARY | 2023-10-22 10:19 | External Medical Summary | Summary of Care ---
Author Name Unknown Organization [facility] Address [address] [place] [address] Phone [phone] Care Team Providers Care Repair Miller Name Role Phone China Mera BAM Primary Care Provider Encounter Details Date Type Department Care Team (Late st Contact Info) Description 07/04/2023 Orders Only Unspecified Department Allergies Active Allergy Reactions Criticality Noted Date [...] Date Smoking Tobacco: Never Smokeless Tobacco: Never Alcohol Use Standard Drinks/Week Comments No 0 (1 standard drink = 0.6 oz pur e alcohol) Sex and Gender Information Value Date Recorded Sex Assigned at Not on file Gender Identity Not on file Sexual Orientation Not on file Job Start Date Occupation Industry Not on file Not on file Not on file documented as of this encounter Plan of Treatment Health Maintenance [...] Not on filedocumented as of this encounter Procedures Procedure Name Priority Date/Time Associated Diagnosis Comments AUDIOMETRIC RESULT 07/04/2023 documented in this encounter Results * AUDIOMETRIC RESULT (07/04/2023) 07/04/2023 No Physician Data Unknown HEARING SERVIC ES documented in this encounter Advance Directives Latest Code Status on File Code Status Date Activated Date Inactivated Comments None 11/30/2004 8:50 AM 11/30/2004 8:50 AM Care Teams Repair Miller Relationship Specialty Start Date End Date China Mera CRNP [address] [facility] [address], [place] [address] PCP - General Nurse Practitioner 03/23/23 documented as of this encounter
--- OUTSIDE RECORDS SUMMARY | 2023-10-22 10:19 | External Medical Summary | Summary of Care ---
Author Name Unknown Organization [facility] Address [address] [place] [address] Phone [phone] Care Team Providers Care Bass Guitar Teacher Name Role Phone China Mera Michaelfroylan BAM Primary Care Provider Encounter Details Date Type Department Care Team (Late st Contact Info) Description 07/04/2023 10:00 AM EST Office Visit Audiology [facility] [address] [facility] [place] [address] Emmy Orellana Au.D. [address] [place] [address] Tinnitus, subjective, bilateral [H93.13]*; Sensorineural hearing loss (SNHL) of both ears [H90.3] Allergies Active Allergy Reactions Criticality Noted Date [...] on file documented as of this encounter Progress Notes * Emmy Orellana Au.D. - 07/04/2023 10:50 AM EST Tympanometry [address] Right: WNL for static admittance, tympanometric peak pressure, equivalent volume, and tympanic width("Type A") Left: WNL for static admittance, tympanometric peak pressure, equivalent volume, and tympanic width("Type A") Standard audiometric testing 607[address] ABSD Headphones Good reliability Right: Hearing thresholds revealed a mild sloping to profound SNHL at 500-8000Hz Left: Hearing thresholds revealed a mild sloping to profound SNHL at 500-8000 Hz Speech recognition thresholds were consistent with hearing thresholds. Word recognition scores, obtained via live voice were: right 60%, left 72% Cont use of hearing aids documented in this encounter Plan of Treatment [...] this encounter Visit Diagnoses Diagnosis Tinnitus, subjective, bilateral [H93.13]- Primary Sensorineural hearing loss (SNHL) of both ears [H90.3] documented in this encounter Advance Directives Latest Code Status on File Code Status Date Activated Date Inactivated Comments None 11/30/2004 8:50 AM 11/30/2004 8:50 AM Care Teams Bass Guitar Teacher Relationship Specialty Start Date End Date China Mera CRNP [address] [place] [address], [place] [address] PCP - General Nurse Practitioner 03/23/23 documented as of this encounter
[2023-10-22 10:30] LABS: Appearance Urine Clear (Clear); Bacteria Urine Automated Negative (Negative); Bilirubin Urine Negative (Negative); Blood Urine Negative (Negative); Cast Urine Automated 0 /lpf (0-5); Color Urine Yellow; Glucose Urine UA Negative (Negative); Ketones Urine Negative (Negative); Leukocyte Esterase Urine Trace (Negative); Nitrite Urine Negative (Negative); Protein Urine Negative (Negative); RBC Urine Automated 0-4 /hpf (0-4); Specific Gravity Urine 1.013 (1.000-1.030); Urobilinogen Urine Negative (Negative); pH Urine 7.5 (4.5-7.5)
--- NOTE | 2023-10-22 11:19 | History & Physical Report ---
Date of Service October 22, 2023 Assessment & Plan (1) Stroke-like symptoms: Plan: -Admit to med/tele -Currently hypertensive at 184/98 but otherwise stable -Presented to the ED after experiencing 30 seconds of right facial droop/numbness, difficulty speaking, and RUE weakness around 1500 10/21/23 -Noticed difficulty coordinating RUE this am while trying to use iPad -All symptoms have resolved at the time of the exam -CT head and CTA head/neck negative for acute findings -We will continue stoke workup with the following: >MRI brain wo con >TTE >AM A1c and fasting lipid panel -Will allow for permissive HTN until MRI results are back -S/P 75 mg Plavix in the ED -Continue plavix and Pravastatin for now -Hisotry of hives with aspirin -Continue q4h neuro checks -Fall/aspiration precautions -PT/OT consults -Will consult Neurology with any concerning findings -HH diet -BL SCD's for DVT PPX -AM CBC, BMP, mag, A1c, lipid panel (2) Hyponatremia: Plan: -Sodium of 131 today -Likely due to recently starting HCTZ on 06/20 -Appears euvolemic on exam -S/P 500 mL NSS in the ED -Follow am sodium level -Will hold HCTZ until stroke workup is back (3) Right pontine stroke: Plan: -Occurred in 2020 -Continue Plavix and Statin (4) Hypertension: Plan: -Hold HCTZ until stroke workup is complete Plan The patient was discussed with Dr. Wolf at the time of the admission History of Present Illness Chief Complaint: Stroke-like symptoms Primary Care Provider: BAM Zepeda Kate Borja is an 6 0year old female with a PMH significant for previous right pontine stroke in 2020, aspirin allergy (Hives), hypothyroidism, HTN, and GERD who presented to the [facility] ED on 10/22/23 with intermittent, right arm weakness/paresthesias, right facial droop/numbness, and left arm pain over the past 24 hours. She was noted to be hypertensive at 184/98 on arrival but otherwise stable. Labs were significant for a sodium of 131 and chloride of [address] of the head/brain wo con was read as negative for acute findings. CTA of the head/neck was read as 1. No significant stenosis, occlusion, or aneurysm within the [place]. 2. No significant stenosis, occlusion, or dissection identified within the carotid or vertebral arteries. 3. Mild focal narrowing within the right P1 segment of less than 50% has slightly improved.. Prior to admission the patient was given 75 mg Plavix and 500 mL NSS. At the time of the exam the patient was walking back from the bathroom in no acute distress. States that she was at a stop sign yesterday afternoon around 1500 when she developed acute onset of right sided facial droop/numbness, difficulty speaking, and right upper extremity weakness/paresthesias. Symptoms lasted for approximately 30 seconds and resolved spontaneously. Denies having a headache or other symptoms associated with possible migraine at the onset of symptoms. Was back to her normal state of health last night and this am upon waking. While using her iPad this am she noticed that she was less coordinated with her RUE compared to baseline. She is right hand dominant. Because of her ongoing RUE weakness she presented to the ED. States that her RUE is now back to baseline. Confirms hx of Aspirin allergy with hives. Was recently switched to Pravastatin by PCP. PCP started her on Lisinopril in late July of this year, this was switched to HCTZ this past week due to dry cough. Has been taking her HCTZ as prescribed since 06/20/24. She is a conditional code; she would not want CPR or defibrillation in the event of cardiac arrest. In the event of respiratory failure she would want a trial of intubation. Her son is her POA. Please refer to Dr. Wolf's attestation for any changes to the treatment plan Allergies Allergy/AdvReac Type Severity Reaction Status Date / Time aspirin Allergy Intermediate HIVES Verified 07/30/21 08:58 bupropion Allergy Intermediate HIVES Verified 07/30/21 08:58 codeine Allergy Intermediate TYL Verified 07/30/21 08:58 #3/HIVES hydrocodone Allergy Intermediate HIVES Verified 07/30/21 08:58 NSAIDS (Non-Steroidal Allergy Intermediate Hives Verified 07/30/21 08:58 Anti-Inflamma Penicillins Allergy Intermediate Hives Verified 07/30/21 08:58 Home Medications Medication Instructions Recorded Confirmed Type ascorbic acid (vitamin C) 1,000 mg 1 g PO QAM 02/12/20 10/22/23 History tablet (Vitamin C) cholecalciferol (vitamin D3) 50 50 mcg PO QAM 02/12/20 10/22/23 History mcg (2,000 unit) capsule (Vitamin D3) clopidogrel 75 mg tablet 75 mg PO QAM #30 tabs 10/01/20 10/22/23 Rx coenzyme Q10 100 mg capsule 200 mg PO DAILY 10/17/20 10/22/23 History (CoQ-10) pantoprazole 20 mg tablet,delayed 20 mg PO QPM 10/17/20 10/22/23 History release levothyroxine 137 mcg tablet 137 mcg PO DAILY 07/30/21 10/22/23 History nutritional supplement-fiber oral 2 ea PO DAILY 07/30/21 10/22/23 History liquid nutritional supplement-fiber oral 2 ea PO DAILY 07/30/21 10/22/23 History liquid omega-3 fatty acids [[place] 3] 4 cap PO DAILY 07/30/21 10/22/23 History zinc gluconate-vitamin C [zinc] 50 mg PO DAILY 07/30/21 10/22/23 History hydrochlorothiazide 12.5 mg capsule 12.5 mg PO DAILY 10/22/23 10/22/23 History pravastatin 40 mg tablet 40 mg PO DAILY 10/22/23 10/22/23 History Past Med/Surg History Medical History Acid reflux History of sleep apnea Hypothyroidism Surgical History History of cataract surgery History of cholecystectomy History of colonoscopy History of hysterectomy History of open reduction and internal fixation (ORIF) procedure History of oral surgery History of total left knee replacement Family History Other Asthma Hearing loss Heart disease Hypertension No family history of bleeding disorder Stroke Denies family history of Cancer Social History Smoking Status: Never smoker Do You Dip or Chew Tobacco: No; Hx Alcohol Use: No Hx Substance Use: No Preferred Language: German Communication Ability: Effective Sheriffs Officer Required: No Beliefs That Will Affect Care: None marital status: / Current Living Situation: Alone current occupational status: retired How many Children do You have: 4 Feels Safe at Home: Yes Assistive Devices: Glasses and Hearing Aid - Bilateral Physical Exam Physical Exam: Physical Exam: General: In no acute distress, stated age, well-nourished, good hygiene HEENT: Normocephalic, atraumatic, no scleral icterus, pupils around round, symmetrical, and reactive to light, moist mucus membranes, trachea midline, no thyromegaly Chest/Pulm: No respiratory distress, symmetrical chest expansion, clear breath sounds throughout Cardiac: RRR, no murmurs noted Abdomen: Negative for ascites and bruising, normoactive bowel sounds, soft, non-tender to palpation throughout Musculoskeletal: Symmetrical and without signs of acute trauma, upper and lower extremities with full ROM, no atrophy, spasticity, or flaccidity Extremities: Radial, dorsalis pedis, and posterior tibial pulses are intact and symmetrical, no edema noted in the BL LE's Skin: Warm, dry, no rashes , lesions, or scars noted Neuro: Alert and oriented to person, place, month, year, no focal defects, CN II-XII tested and intact, Negative Cerebellar and pronator drift testing in the BL UE's, no tremors noted Psych: No acute distress, calm and cooperative during the exam Results & Data Results & Data Vital Signs (Past 12 Hours) Vital Signs Temp Pulse Pulse Resp BP BP Pulse Ox 10/22/23 09:50 76 18 184/98 H 98 10/22/23 09:04 84 10/22/23 08:51 86 18 161/94 H 94 10/22/23 08:28 36.3 C L 93 H 18 163/76 H 95 O2 Del Method 10/22/23 09:50 Room Air 10/22/23 09:04 10/22/23 08:51 Room Air 10/22/23 08:28 Room Air Laboratory Results Abnormal lab results 10/22/23 10/22/23 10/22/23 Range/Units 08:42 08:44 09:44 MPV 8.9 L (9.4-12.4) fL Sodium 131 L (136-145) mmol/L Chloride 95 L (98-107) mmol/L Glucose 117 H (70-99(Fasting)) mg/dl POC Glucose 118 H (70-99) mg/dl Alkaline Phosphatase 106 H (34-104) U/L Ur Leukocyte Esterase Trace H (Negative) U Epithel Cells (Auto) 10-20 H (0-5) /lpf Diagnostic Findings Head CT 10/22/23 08:[address] DOSE: HISTORY: neuro deficit, acute stroke suspected TECHNIQUE: Multiaxial CT images of the head were performed without the use of intravenous contrast. Automated exposure control was utilized for this study. A dose lowering technique was utilized adhering to the principles of ALARA. Comparison: Head CT 10/17/2020. Findings: The paranasal sinuses and mastoid air cells are clear. The calvarium and skull base are intact. There is no mass, hematoma, midline shift, acute infarct. White matter hypodensity is nonspecific but suggestive of microvascular ischemic change. The ventricles and sulci demonstrate mild age-related in volutional changes. Impression: No significant change compared to the prior study. No acute intracranial abnormality. ACT 112: Negative or not required by law. Electronically signed by: Jamaal Marcano M.D. 10/22/2023 9:54 AM Head CTA 10/22/23 08:50 HEAD & NECK CTA HISTORY: neuro deficit, acute stroke suspected TECHNIQUE: Multiaxial CT images of the head were performed following the intravenous administration of contrast to evaluate the major cerebral vessels. Multiaxial CT images of the neck were also performed following the intravenous administration of contrast to evaluate the major cervical vessels. 3D/MIP images were also obtained. Sagittal and coronal reformats were reviewed. A dose lowering technique was utilized adhering to the principles of ALARA. COMPARISON: Head and neck CTA 09/28/2020. FINDINGS: There is no mass, hematoma, midline shift, or acute infarct. Visualized intracranial internal carotid arteries, distal vertebral arteries, and basilar artery are widely patent. There is no significant stenosis, occlusion, or aneurysm seen within the bilateral ACAs, MCAs, or left SUPERVISOR HOT DIP PLATING. Mild focal narrowing within the right P1 segment of less than 50% has slightly improved. The major dural venous sinuses are patent. The aortic arch and proximal great vessels are widely patent. There is no significant stenosis, occlusion, or dissection identified within the bilateral common carotid, internal carotid, or vertebral arteries. Mild calcified plaque within the bilateral carotid bifurcations. IMPRESSION: 1. No significant stenosis, occlusion, or aneurysm within the [place]. 2. No significant stenosis, occlusion, or dissection identified within the carotid or vertebral arteries. 3. Mild focal narrowing within the right P1 segment of less than 50% has slightly improved. ACT 112: Negative or not required by law. Electronically signed by: Jamaal Marcano M.D. 10/22/2023 9:59 AM Neck CTA 10/22/23 08:50 HEAD & NECK CTA HISTORY: neuro deficit, acute stroke suspected TECHNIQUE: Multiaxial CT images of the head were performed following the intravenous administration of contrast to evaluate the major cerebral vessels. Multiaxial CT images of the neck were also performed following the intravenous administration of contrast to evaluate the major cervical vessels. 3D/MIP images were also obtained. Sagittal and coronal reformats were reviewed. A dose lowering technique was utilized adhering to the principles of ALARA. COMPARISON: Head and neck CTA 09/28/2020. FINDINGS: There is no mass, hematoma, midline shift, or acute infarct. Visualized intracranial internal carotid arteries, distal vertebral arteries, and basilar artery are widely patent. There is no significant stenosis, occlusion, or aneurysm seen within the bilateral ACAs, MCAs, or left SUPERVISOR HOT DIP PLATING. Mild focal narrowing within the right P1 segment of less than 50% has slightly improved. The major dural venous sinuses are patent. The aortic arch and proximal great vessels are widely patent. There is no significant stenosis, occlusion, or dissection identified within the bilateral common carotid, internal carotid, or vertebral arteries. Mild calcified plaque within the bilateral carotid bifurcations. IMPRESSION: 1. No significant stenosis, occlusion, or aneurysm within the [place]. 2. No significant stenosis, occlusion, or dissection identified within the carotid or vertebral arteries. 3. Mild focal narrowing within the right P1 segment of less than 50% has sligh tly improved. ACT 112: Negative or not required by law. Electronically signed by: Jamaal Marcano M.D. 10/22/2023 9:59 AM ECG Additional Comments: Normal sinus rhythm Nonspecific T wave abnormality Abnormal ECG When compared with ECG of 17-OCT-2020 09:01, No significant change was found Code Status & VTE Plan Code Status Conditional code; see HPI VTE Prophylaxis Plan VTE Prophylaxis will be ordered: Yes Supervising Physician Co-Signing Physician Notes Patient seen and examined, chart reviewed, case discussed with Marquise Santiago PA-C and I agree with the assessment and plan as above except as otherwise noted Labs and images reviewed 78yo F recently started on hctz who prseents with sudden onset R arm weaknes,s R facial droop, R arm numbness which lasted 30 seconds and then resolved highly concerning for TIA. This mornin using ipad felt her arm coordination was very off, came in for stroke eval. Feels he rsymptoms have completely resolved at time of bedside eval. She has a history of prior CVA, hive allergy to aspirin and is on plaavix. CThead is without acute findings, angio of the head and neck shows a mild focal narrowing of right P1 less than 50% slightly improved from prior and otherwise no acute findings. Symptoms highly concerning for TIA/CVA and with prior history of pontine stroke. Will obtain MRI. If evidence of acute/subacute stroke are noted, consult neurology for discussion of ideal antiplatelet as patient is already on Plavix and has a hive allergy to aspirin. Additionally she has a history of statin intolerance to multiple statins, has been switched to Plavix/Zetia and more recently is trialing pravastatin. Patient reports bedside that she feels she does have some muscle aches and pains and sometimes her left shoulder but the pravastatin does not seem to have affected this much or made it worse like the other statins had, and she is taking this with co-Q10. At bedside she has full strength in her upper and lower extremities bilaterally without asymmetry, vision and hearing is intact, no nystagmus or field cuts, and no facial droop. Permissive hypertension until acute stroke is ruled out on MRI. Agree with assessment and management above PG Care Time/CCT Total # of Minutes Spent Total Time Spent with Patient: Total time spent is greater than 50% in coordination of care (as documented) at patient's floor/unit and/or counseling patient: [place] [address] INT INP/OBS CARE 3/75MIN Patient Type Established History Comprehensive Exam Comprehensive Medical Decision Making High Complexity Diagnoses Stroke-like symptoms R29.90 Hyponatremia E87.1 Right pontine stroke I63.50 Hypertension I10
[2023-10-22] MEDS ORDERED: PHARMACIST DISCHARGE MED REC CONSULT PRN (11:20)
[2023-10-22] MEDS ORDERED: LORazepam 0.5 MG in SYRINGE 0.25 ML IV ONE (12:00)
[2023-10-22] MEDS: LORazepam 1 MG/1 ML SYR ED Inj Use IV ONE (12:55)
--- NOTE | 2023-10-22 14:23 | Magnetic Resonance Report ---
Brain MRI WITHOUT CONTRAST HISTORY: Slurred speech. Right facial droop. stroke workup TECHNIQUE: Multiplanar multisequence MRI of the brain was performed without the use of contrast. COMPARISON STUDY: Head CT 10/22/2023. Brain MRI 09/28/2020. FINDINGS: There is no mass, hematoma, midline shift, or acute infarct. The paranasal sinuses are ben r. The mastoid air cells are clear. The ventricles and sulci demonstrate mild age-related involutiona l changes. Scattered foci of T2 hyperintensity seen within the periventricular and subcortical white matter are nonspecific but suggestive of mild microvascular ischemic changes. The major vascular flow voids at the skull base are well-maintained. Prior bilateral lens replacement. IMPRESSION: No acute intracranial abnormality. Scattered foci of T2 hyperintensity seen within the periventricula r and subcortical white matter are nonspecific but favor microvascular ischemic change. ACT 112: Negative or not required by law. Electronically signed by: Jamaal Marcano M.D. 10/22/2023 2:22 PM
--- NOTE | 2023-10-22 14:43 | XCELERA ---
[id number] \\[id number]
[2023-10-22] MEDS: PANTOprazole 40 MG TAB PO SCH (19:33)
[2023-10-22] MEDS: MELATONIN 3 MG TAB PO PRN (20:25)
[2023-10-22] MEDS: ACETAMINOPHEN 500 MG TAB PO PRN (20:25)
[2023-10-23] MEDS: LEVOTHYROXINE SODIUM 137 MCG TABLET PO SCH (06:36)
[2023-10-23 06:44] LABS: Hematocrit (blood only) 39.3 % (37.0-47.0); Hemoglobin 13.8 g/dl (12.0-16.0); Mean Corpuscular Hemoglobin 30.3 pg (25.0-34.0); Mean Corpuscular Hgb Conc 35.1 g/dL (32.0-36.0); Mean Corpuscular Volume 86.2 fL (80.0-100.0); Mean Platelet Volume 8.9 fL (9.4-12.4); Platelet Count 309 K/uL (130-400); RDW Coefficient of Variation 12.7 % (11.5-14.5); Red Blood Count 4.56 M/uL (4.20-5.40); White Blood Count 7.15 K/ul (4.8-10.8)
[2023-10-23 07:03] LABS: Prothrombin Time 10.6 Seconds (9.0-12.0)
[2023-10-23 08:19] LABS: BUN Creatinine Ratio 17.6 (10-20); Calcium 9.2 mg/dl (8.6-10.3); Chol HDL Ratio 3.2 (0-5); Creatinine Clr Calc Pharmacy 69.1 ml/min; Est GFR (African American) 95.8 ml/min; Est GFR (Non-African American) 82.6 ml/min; Magnesium 2.1 mg/dl (1.7-2.4); Potassium 3.4 mmol/L (3.5-5.1)
[2023-10-23] MEDS: PRAVASTATIN SOD 40 MG TAB PO SCH (08:26)
[2023-10-23] MEDS: CLOPIDOGREL BISULFATE 75 MG TAB PO SCH (08:26)
[2023-10-23] MEDS ORDERED: STROKE PATIENT DISCHARGE STA (13:30)
--- NOTE | 2023-10-23 13:36 | Discharge Summary ---
Date of Service October 23, 2023 Admission HPI Per Admitting Provider Kate Borja is an 6 0year old female with a PMH significant for previous right pontine stroke in 2020, aspirin allergy (Hives), hypothyroidism, HTN, and GERD who presented to the [facility] ED on 10/22/23 with intermittent, right arm weakness/paresthesias, right facial droop/numbness, and left arm pain over the past 24 hours. She was noted to be hypertensive at 184/98 on arrival but otherwise stable. Labs were significant for a sodium of 131 and chloride of [address] of the head/brain wo con was read as negative for acute findings. CTA of the head/neck was read as 1. No significant stenosis, occlusion, or aneurysm within the [place]. 2. No significant stenosis, occlusion, or dissection identified within the carotid or vertebral arteries. 3. Mild focal narrowing within the right P1 segment of less than 50% has slightly improved.. Prior to admission the patient was given 75 mg Plavix and 500 mL NSS. At the time of the exam the patient was walking back from the bathroom in no acute distress. States that she was at a stop sign yesterday afternoon around 1500 when she developed acute onset of right sided facial droop/numbness, difficulty speaking, and right upper extremity weakness/paresthesias. Symptoms lasted for approximately 30 seconds and resolved spontaneously. Denies having a headache or other symptoms associated with possible migraine at the onset of symptoms. Was back to her normal state of health last night and this am upon waking. While using her iPad this am she noticed that she was less coordinated with her RUE compared to baseline. She is right hand dominant. Because of her ongoing RUE weakness she presented to the ED. States that her RUE is now back to baseline. Confirms hx of Aspirin allergy with hives. Was recently switched to Pravastatin by PCP. PCP started her on Lisinopril in late July of this year, this was switched to HCTZ this past week due to dry cough. Has been taking her HCTZ as prescribed since 06/20/24. She is a conditional code; she would not want CPR or defibrillation in the event of cardiac arrest. In the event of respiratory failure she would want a trial of intubation. Her son is her POA. Please refer to Dr. Wolf's attestation for any changes to the treatment plan Admission Exam Per Admitting Provider General: In no acute distress, stated age, well-nourished, good hygiene HEENT: Normocephalic, atraumatic, no scleral icterus, pupils around round, symmetrical, and reactive to light, moist mucus membranes, trachea midline, no thyromegaly Chest/Pulm: No respiratory distress, symmetrical chest expansion, clear breath sounds throughout Cardiac: RRR, no murmurs noted Abdomen: Negative for ascites and bruising, normoactive bowel sounds, soft, non- tender to palpation throughout Musculoskeletal: Symmetrical and without signs of acute trauma, upper and lower extremities with full ROM, no atrophy, spasticity, or flaccidity Extremities: Radial, dorsalis pedis, and posterior tibial pulses are intact and symmetrical, no edema noted in the BL LE's Skin: Warm, dry, no rashes , lesions, or scars noted Neuro: Alert and oriented to person, place, month, year, no focal defects, CN II-XII tested and intact, Negative Cerebellar and pronator drift testing in the BL UE's, no tremors noted Psych: No acute distress, calm and cooperative during the exam Principal Diagnosis Transient ischemic attack (TIA) Discharge Exam General: No acute distress, nondiaphoretic, well-developed, well-nourished. Skin: The skin was without rashes, erythema, edema, or bruising. Cardiac: Regular rate and rhythm without murmurs gallops or rubs. Pulm: Clear to auscultation bilaterally without wheezes, rales or rhonchi. No retractions or accessory muscle use. Abdominal: Positive bowel sounds x 4. Soft, nontender, without masses or organomegaly. No guarding or rebound tenderness. Neuro: A&O x3. No focal neurological deficits. Discharge Data Allergies Allergy/AdvReac Type Severity Reaction Status Date / Time aspirin Allergy Intermediate HIVES Verified 07/30/21 08:58 bupropion Allergy Intermediate HIVES Verified 07/30/21 08:58 codeine Allergy Intermediate TYL Verified 07/30/21 08:58 #3/HIVES hydrocodone Allergy Intermediate HIVES Verified 07/30/21 08:58 NSAIDS (Non-Steroidal Allergy Intermediate Hives Verified 07/30/21 08:58 Anti-Inflamma Penicillins Allergy Intermediate Hives Verified 07/30/21 08:58 Consultations 10/22/23 10:13 ED Decision to Admit Stat 10/23/23 13:32 Consult [employer] supervisor Routine Ordered Studies 10/22/23 08:50 CT angio head w con Stat CT angio neck with con Stat CT head/brain wo con Stat 10/22/23 11:51 MRI Brain [MR brain wo con] Urgent Hospital Course (1) Stroke-like symptoms: -Patient experienced strokelike symptoms for approximately 30 seconds on 10/20 around 1500, which resolved -Patient noticed difficulty coordinating right upper extremity on 10/21, and presented to ER where all symptoms were resolved -CT head, CTA head/neck, brain MRI negative for acute findings -Symptoms most likely secondary to TIA -History of hives with aspirin -Continue Plavix and pravastatin 60 mg -Follow-up with neurology and PCP in 1 week (2) Hyponatremia: -Sodium of 131 on presentation, likely due to recently starting HCTZ on 06/20 (3) Right pontine stroke: -Occurred in 2020 -Continue Plavix and Statin Plan CODE STATUS: Conditional code Total Time Total Time Spent Total Time Spent (In Minutes): Greater than 30 minutes spent completing this discharge process including direct patient care, medication reconciliation, documentation, review of labs and images, and coordination of care. Discharge Plan Discharge Items Patient Disposition: Home - Self-Care Reason For Visit: STROKE-LIKE SYMPTOMS Discharge Diagnosis: Transient ischemic attack (TIA) Condition on Discharge: Good Activity: Resume your previous activity Non-emergency contact: Primary Care Provider Call non-emergency contact if: you have any medication questions and your symptoms worsen Follow-up/Referrals: China Mera CRNP [Primary Care Provider] - Diet: Heart Healthy Addtl Attending Provider Instructions: Ms. Borja, You were admitted to the hospital for stroke-like symptoms. You had a CT scan of your head and an MRI of your brain, which both showed that you did not have an acute stroke. Therefore, you had a transient ischemic attack (TIA). A TIA occurs when there is decreased blood flow to part of your brain. This caused your symptoms of temporary right-sided facial droop/numbness, difficulty speaking, and right upper extremity weakness. I discussed your case with neurology, who recommends that you continue your Plavix and pravastatin 60 mg. I sent a new prescription of pravastatin 60 mg to your pharmacy. Please follow-up with your PCP and neurology in about 1 week. Both of their offices will call you early this week to schedule these appointments. Please return to the hospital if you experience any of the following: * Any of your TIA symptoms return * New problems with speech, vision, walking, weakness or numbness of the face or 1 side of the body * Severe headache * Fainting spell * Dizziness * Seizure * Shortness of breath * Chest pain It was a pleasure taking care of you in the hospital today, Mona Pollard PA-C Pending Studies at Discharge: No Stand-Alone Forms: [facility], Smoking Cessation Medications and DC Order Prescriptions: Continued levothyroxine 137 mcg tablet 137 mcg PO DAILY nutritional supplement-fiber Liquid 2 ea PO DAILY nutritional supplement-fiber Liquid 2 ea PO DAILY zinc gluconate-vitamin C [zinc] 50 mg PO DAILY omega-3 fatty acids [[place] 3] 4 cap PO DAILY ascorbic acid (vitamin C) [Vitamin C] 1,000 mg Tablet 1 g PO QAM cholecalciferol (vitamin D3) [Vitamin D3] 50 mcg (2,000 unit) Capsule 50 mcg PO QAM pantoprazole 20 mg tablet,delayed release (DR/EC) 20 mg PO QPM coenzyme Q10 [CoQ-10] 100 mg Capsule 200 mg PO DAILY clopidogrel 75 mg Tablet 75 mg PO QAM Qty: 30 3RF hydrochlorothiazide 12.5 mg capsule 12.5 mg PO DAILY Changed pravastatin 40 mg tablet 60 mg PO DAILY Qty: 30 0RF Discharge Orders: Discharge Order (Routine); Ordered 10/23/23 Ordered By: Mona Ann/Other Patient Handouts: ED TIA: Transient Ischemic Attack Admission Data Admit Date/Time: 10/22/23 11:19 Attending Provider: Thai Lucio Admit Provider: Darien Wolf Primary Care Provider: China Mera Other Providers: Darien Wolf Coding Level of Care Code 02430 INP/OBS DISCH >30 MIN Diagnoses Stroke-like symptoms R29.90 Hyponatremia E87.1 Right pontine stroke I63.50
[2023-10-24 07:35] LABS: Estimated Average Glucose 120 mg/dl; Hemoglobin A1C 5.8 % (4.5-5.6)
--- NOTE | 2023-10-24 13:23 | Pharmacy Report ---
Pharmacist Stroke Counseling - Date of Service October 24, 2023 - Scope: Pharmacy has been consulted to provide medication discharge counseling for this patient admitted with [ischemic stroke] [hemorrhagic stroke] [transient ischemic attack] as per the Pharmacist Discharge Counseling for Stroke Patients Julieta lindquist - Medications on Discharge: Home Medications Medication Instructions Recorded Confirmed ascorbic acid (vitamin C) 1,000 mg 1 g PO QAM 02/12/20 10/22/23 tablet (Vitamin C) cholecalciferol (vitamin D3) 50 50 mcg PO QAM 02/12/20 10/22/23 mcg (2,000 unit) capsule (Vitamin D3) coenzyme Q10 100 mg capsule 200 mg PO DAILY 10/17/20 10/22/23 (CoQ-10) pantoprazole 20 mg tablet,delayed 20 mg PO QPM 10/17/20 10/22/23 release levothyroxine 137 mcg tablet 137 mcg PO DAILY 07/30/21 10/22/23 nutritional supplement-fiber oral 2 ea PO DAILY 07/30/21 10/22/23 liquid nutritional supplement-fiber oral 2 ea PO DAILY 07/30/21 10/22/23 liquid omega-3 fatty acids [[place] 3] 4 cap PO DAILY 07/30/21 10/22/23 zinc gluconate-vitamin C [zinc] 50 mg PO DAILY 07/30/21 10/22/23 hydrochlorothiazide 12.5 mg capsule 12.5 mg PO DAILY 10/22/23 10/22/23 New Rx's Medication Instructions Recorded clopidogrel 75 mg tablet 75 mg PO QAM #30 tabs 10/01/20 pravastatin 40 mg tablet 60 mg (1.5 x 40 mg) PO DAILY #30 10/23/23 tabs - Action: The above medications, specifically ones for stroke treatment/prophylaxis, have been reviewed in detail with the patient. This includes indication, common adverse reactions, and medication administration. - Outcome: The patient has demonstrated understanding of the medications. Additional comments: * Discussed increase in pravastatin dose - Kate noted she had not yet picked it up. She expressed concern w the increase in dose given her recent increase up to 40 mg which has caused her to have some lower back pain. * Kate noted she has follow-up scheduled with neurology later today. I noted to discuss this with them, as a change in statin could be indicated, both due to above and due to lack of high-intensity statin. However, avoidance of high- intensity statin may be reasonable given her age and also her above possible intolerance of pravastatin. Kate acknowledged understanding and noted intent to discuss statin plan with her neurologist today. She also noted she has follow-up with her PCP scheduled for later this week. Thank you for allowing pharmacy to be involved in the care of this patient. Please call [phone] with any additional questions
--- NOTE | 2023-10-25 07:02 | Electrocardiogram Report ---
Test Reason : Blood Pressure : / mmHG Vent. Rate : 083 BPM Atrial Rate : 083 BPM P-R Int : 190 ms QRS Dur : 088 ms QT Int : 392 ms P-R-T Axes : 051 -05 007 degrees QTc Int : 460 ms Normal sinus rhythm Nonspecific T wave abnormality Abnormal ECG When compared with ECG of 17-OCT-2020 09:01, No significant change was found Confirmed by Bertrand Rajput ([id number]) on 10/25/2023 7:01:40 AM Referred By: REFERRED SELF Confirmed By:Bertrand Rajput
== END 2023-10-23 14:35 | disposition home or self-care (01) | DRG 69 ==
LOC: ED 08:19 → INTOOBSV 11:19 → SUATTDRO 11:19 → 2N 11:19